=== PATIENT | female | born 1930 | race Caucasian/White ===

== ENCOUNTER 2017-09-30 20:17 | Inpatient (IN) | payer MEDICARE, OTHER ==
[2017-09-30 21:29] LABS: ALB/GLOB RATIO 1.2 (1.0-2.1); ALBUMIN 4.2 g/dL (3.5-5.0); CALCIUM 9.9 mg/dL (8.4-10.2)
[2017-09-30 21:30] LABS: INR 1.2 (0.9-1.2); PARTIAL THROMBOPLASTIN TIME 29.3 Seconds (25.6-37.1); PROTHROMBIN TIME 13.1 Seconds (9.8-13.1)
[2017-09-30 21:34] LABS: BASO % 0.2 % (0.0-2.0); EOS % 0.1 % (0.0-4.0); HEMOGLOBIN 10.6 g/dL (12.0-16.0); LYMPH # 0.6 K/uL (1.0-4.3); LYMPH % 9.8 % (20.0-40.0); MEAN CELL VOLUME 99.7 fl (81.0-99.0); MEAN CORPUSCULAR HEMOGLOBIN 33.2 pg (27.0-31.0); MEAN CORPUSCULAR HGB CONC 33.3 g/dL (33.0-37.0); MEAN PLATELET VOLUME 10.1 fl (7.2-11.7); MONO # 0.5 K/uL (0.0-0.8); MONO % 8.1 % (0.0-10.0); NEUT # 4.9 K/uL (1.8-7.0); NEUT % 81.8 % (50.0-75.0); NRBC % 0.1 % (0.0-0.0); RED CELL DISTRIBUTION WIDTH 15.7 % (11.5-14.5)
--- NOTE | 2017-09-30 22:01 | ED PDOC ---
HPI:Nausea, Vomiting, Diarrhea Time Seen by Provider: 09/30/17 20:31 Chief Complaint (Nursing): GI Problem Chief Complaint (Provider): Vomiting History Per: Other (Assisted) History/Exam Limitations: clinical condition (dementia) Associated Symptoms: Nausea, Vomiting Additional History Per: Assisted Additional Complaint(s): 87yo female, with history of dementia, sent to [facility] from [facility] for evaluation as patient was reported to have several episodes of vomiting. On arrival to ER, patient has no recollection of vomiting and states she feels well. Patient has ESRD and is on dialysis (Wednesday, , Wednesday) and did receive the dialysis today. She is unable to offer a full history since she has dementia. PMD: Dr. Irina Chappell Past Medical History Reviewed: Historical Data, Nursing Documentation, Vital Signs Vital Signs: Last Vital Signs Temp 98.4 F 09/30/17 20:20 Pulse 102 H 09/30/17 20:20 Resp 16 09/30/17 20:20 BP 138/60 09/30/17 20:20 Pulse Ox 98 09/30/17 20:20 - Medical History PMH: Dementia, Diabetes, HTN, Chronic Kidney Disease - Surgical History Surgical History: No Surg Hx - Family History Family History: States: No Known Family Hx - Living Arrangements Living Arrangements: Assisted/Assist Lv - Home Medications Home Medications: Ambulatory Orders Medication Instructions Recorded Acetaminophen [Tylenol 325mg tab] 650 mg PO Q4 PRN 10/01/17 Amino Acids/Protein Hydrolys 30 ml PO TID 10/01/17 [Prosource No Carb Liquid Pkt] Calcium Carbonate/Vitamin D3 1 tab PO BID 10/01/17 [Oyster Shell Calcium-Vit D Tab] Clonidine HCl [Catapres] 0.2 mg PO Q8 10/01/17 Clopidogrel [Plavix] 75 mg PO DAILY 10/01/17 Cyproheptadine HCl [Cyproheptadine 1 tab PO BID 10/01/17 HCl] Famotidine [Pepcid] 20 mg PO Q12 10/01/17 Isosorbide Mononitrate ER [Imdur 60 mg PO DAILY 10/01/17 ER] Lactulose [Generlac] 30 ml PO DAILY PRN 10/01/17 Losartan [Cozaar] 100 mg PO DAILY 05/11/18 Pravastatin Sodium [Pravachol] 40 mg PO HS 10/01/17 Sevelamer Carbonate [Renvela] 2 tab PO TIDPC 10/01/17 Vit A/Vitamin D3/E/Aloe V/Zinc 1 appl TD Q8 10/01/17 [Periguard Ointment] Vitamin B Complex/Vit C/Folic 1 tab PO DAILY 10/01/17 [Nephro-Varsha] Vits A and D/White Pet/Lanolin 1 appl TD Q8 10/01/17 [Vitamin A and D Ointment] - Allergies Allergies/Adverse Reactions: Allergies Allergy/AdvReac Type Severity Reaction Status Date / Time moxifloxacin [From Avelox] Allergy RASH Verified 09/30/17 20:20 Penicillins Allergy RASH Verified 09/30/17 20:20 Review of Systems ROS Statement: Except As Marked, All Systems Reviewed And Found Negative ( limited due to patient's clinical condition) Gastrointestinal: Positive for: Nausea, Vomiting Physical Exam - Reviewed Nursing Documentation Reviewed: Yes Vital Signs Reviewed: Yes - Physical Exam Appears: Positive for: Non-toxic, No Acute Distress Skin: Positive for: Warm, Dry Eye Exam: Positive for: Normal appearance ENT: Positive for: Other (dry mucus membranes) Cardiovascular/Chest: Positive for: Regular Rate, Rhythm, Murmur (3/6 holosystolic murmur) Respiratory: Positive for: Normal Breath Sounds Gastrointestinal/Abdominal: Positive for: Normal Exam, Soft. Negative for: Tenderness Neurologic/Psych: Positive for: Alert - Laboratory Results Result Diagrams: 10/01/17 06:25 10/01/17 06:25 - ECG O2 Sat by Pulse Oximetry: 98 (RA) Pulse Ox Interpretation: Normal Medical Decision Making Medical Decision Making: Impression: 87yo female with vomiting in setting of known hemodialysis, renal failure Plan: -- Labs -- Zofran 4mg IV Time: 2142 Labs reviewed and shows significant LFT derangement. US Galbladder ordered. 2310 US FINDINGS: Liver: Increased echogenicity. Measured at 16.5 cm. Gallbladder: Not visualized. Common bile duct: Measured at 7 mm. Pancreas: Limited evaluation. Right kidney: Atrophy. Increased echogenicity. Measured at approximately 6.8 x 2.5 x 2.9 cm. IMPRESSION: Technically limited study. Atrophic right kidney. Correlate for medical renal disease. Gallbladder not visualized. Correlate for cholecystectomy. Limited evaluation of the pancreas. Increased echogenicity of the liver, may be on the basis of fatty infiltration. 0026 Upon re-evaluation, patient notes that she is feeling better. Patient has tolerated PO challenge. Labs reviewed: no clinically significant abnormalities. Repeat vitals show temperature of 102 DC. No obvious source noted. Case referred to hospitalist Dr. Rainey, covering Dr. Chappell. * Acetaminophen 650mg DC * BCx * Re-eval Scribe Attestation: Documented by Lindsey Hayes and Rachel Almeida, acting as a scribe for Noah Rao MD Provider Scribe Attestation: All medical record entries made by the Scribe were at my direction and personally dictated by me. I have reviewed the chart and agree that the record accurately reflects my personal performance of the history, physical exam, medical decision making, and the department course for this patient. I have also personally directed, reviewed, and agree with the discharge instructions and disposition. Disposition - Clinical Impression Clinical Impression: Hemodialysis patient, Fever - Disposition Disposition Time: 00:26 Condition: FAIR - Pt Status Changed To: Hospital Disposition Of: Observation
[2017-09-30 22:05] LABS: BANDS 1 % (0-2); LYMPHOCYTE 11 % (20-50); METAMYELOCYTE 1 % (0-0); MONOCYTE 6 % (0-10); NEUTROPHIL 79 % (42-75); REACTIVE LYMPHOCYTES 2 % (0-0); TOTAL CELLS COUNTED 100
[2017-09-30 22:07] LABS: ANISOCYTOSIS SLIGHT; HYPOCHROMIC MODERATE; POIKILOCYTOSIS SLIGHT; ROULEAUX FORMATION SLIGHT
[2017-09-30 22:12] LABS: TARGET CELLS SLIGHT; TEARDROP CELLS SLIGHT
[2017-09-30 22:13] LABS: OVALOCYTES SLIGHT
[2017-09-30 22:14] LABS: PLATELET ESTIMATE DECREASED (NORMAL)
[2017-09-30 22:18] LABS: PLATELET COUNT 105 K/uL (130-400)
--- NOTE | 2017-09-30 23:11 | US ---
EXAM: US Abdomen Limited, Right Upper Quadrant CLINICAL HISTORY: 87 years old, female; Signs and symptoms; Vomiting TECHNIQUE: Real-time ultrasound of the right upper quadrant with image documentation. COMPARISON: No relevant prior studies available. FINDINGS: Liver: Increased echogenicity. Measured at 16.5 cm. Gallbladder: Not visualized. Common bile duct: Measured at 7 mm. Pancreas: Limited evaluation. Right kidney: Atrophy. Increased echogenicity. Measured at approximately 6.8 x 2.5 x 2.9 cm. IMPRESSION: Technically limited study. Atrophic right kidney. Correlate for medical renal disease. Gallbladder not visualized. Correlate for cholecystectomy. Limited evaluation of the pancreas. Increased echogenicity of the liver, may be on the basis of fatty infiltration.
[2017-10-01] MEDS ORDERED: Gentamicin 80mg/50ml NS 80 MG/50 ML BAG IVPB STA (00:44)
--- NOTE | 2017-10-01 01:27 | CP.PCM.HP ---
History of Present Illness - History of Present Illness History of Present Illness: CC: sent from [place] HPI: 87 F PMH ESRD TTS, Dementia, HTN, presents to the ED from [facility] for reported nausea and several episodes of emesis for one day, unremitting, unknown if ameliorated by anything. Pt states at this time she does not feel well, however is unable to describe what is bothering her. Pt is likely tired, and is mentating at baseline according to ED physician, to whom she is familiar. Abd US unremarkable, no WBC, however did spike fever in ED 102.4 rectally. Given Vanc and Genta. Pt to be catheterized for UA, UCx, blood cx sent. HD stable, otherwise NAD. ROS: difficult to obtain given dementia. PMSH: ESRD, dementia, HTN FH/SH: unable to be obtained, dementia, unable to reach family member Meds as below ALLERGIES: PCN, moxifloxacin CODE STATUS: DNR Present on Admission - Present on Admission Any Indicators Present on Admission: Yes Decubitus Ulcer Present: Yes Decubitus Ulcer Location: sacral, very mild Decubitus Ulcer Stage: I Past Patient History - Past Medical History & Family History Past Medical History?: Yes - Past Social History Smoking Status: Never Smoked - CARDIAC Hx Hypertension: Yes - PULMONARY Hx Respiratory Disorders: No - NEUROLOGICAL Hx Dementia: Yes - HEENT Hx HEENT Problems: No - RENAL Hx Chronic Kidney Disease: Yes - ENDOCRINE/METABOLIC Hx Endocrine Disorders: Yes Hx Diabetes Mellitus Type 2: Yes - HEMATOLOGICAL/ONCOLOGICAL Hx Blood Disorders: No - INTEGUMENTARY Hx Dermatological Problems: Yes Other/Comment: Hx Healed decubitus ulcer (buttocks) - MUSCULOSKELETAL/RHEUMATOLOGICAL Hx Musculoskeletal Disorders: Yes Hx Falls: Yes - GASTROINTESTINAL Hx Gastrointestinal Disorders: Yes Hx Gastroesophageal Reflux: Yes Other/Comment: Hx Prolapsed rectum - GENITOURINARY/GYNECOLOGICAL Hx Genitourinary Disorders: Yes Other/Comment: Hx Uterine prolapse - PSYCHIATRIC Hx Substance Use: No - SURGICAL HISTORY Hx Surgeries: Yes Other/Comment: Hx Av fistula creation - ANESTHESIA Hx Anesthesia: Yes Hx Anesthesia Reactions: No Hx Malignant Hyperthermia: No Meds Allergies/Adverse Reactions: Allergies Allergy/AdvReac Type Severity Reaction Status Date / Time moxifloxacin [From Avelox] Allergy RASH Verified 09/30/17 20:20 Penicillins Allergy RASH Verified 09/30/17 20:20 Physical Exam - Constitutional Appears: Non-toxic, No Acute Distress - Head Exam Head Exam: ATRAUMATIC, NORMOCEPHALIC - Eye Exam Eye Exam: EOMI, Normal appearance, PERRL - ENT Exam ENT Exam: Mucous Membranes Moist, Normal Oropharynx - Respiratory Exam Respiratory Exam: Clear to Auscultation Bilateral, NORMAL BREATHING PATTERN - Cardiovascular Exam Cardiovascular Exam: RRR, +S1, +S2, Systolic Murmur - GI/Abdominal Exam GI & Abdominal Exam: Normal Bowel Sounds, Soft - Extremities Exam Extremities exam: Positive for: normal capillary refill, pedal pulses present - Back Exam Back exam: absent: CVA tenderness (L), CVA tenderness (R) - Neurological Exam Neurological exam: Alert, Reflexes Normal - Psychiatric Exam Psychiatric exam: Normal Affect, Normal Mood - Skin Skin Exam: Dry, Warm Results - Vital Signs Recent Vital Signs: Last Vital Signs Temp 102.4 F H 10/01/17 00:24 Pulse 68 10/01/17 00:24 Resp 18 10/01/17 00:24 BP 136/66 10/01/17 00:24 Pulse Ox 98 10/01/17 01:26 - Labs Result Diagrams: 09/30/17 20:30 09/30/17 20:30 Labs: Laboratory Results - last 24 hr 09/30/17 09/30/17 09/30/17 20:30 20:30 20:30 WBC 6.0 RBC 3.20 L Hgb 10.6 L Hct 31.9 L MCV 99.7 H MCH 33.2 H MCHC 33.3 RDW 15.7 H Plt Count 105 L MPV 10.1 Neut % (Auto) 81.8 H Lymph % (Auto) 9.8 L Garvin % (Auto) 8.1 Eos % (Auto) 0.1 Baso % (Auto) 0.2 Neut # (Auto) 4.9 Lymph # (Auto) 0.6 L Garvin # (Auto) 0.5 Eos # (Auto) 0.0 Baso # (Auto) 0.0 Neutrophils % (Manual) 79 H Band Neutrophils % 1 Lymphocytes % (Manual) 11 L Reactive Lymphs % 2 H Monocytes % (Manual) 6 Metamyelocytes % 1 H Platelet Estimate Decreased L Hypochromasia (manual) Moderate Poikilocytosis (manual Slight Anisocytosis (manual) Slight Target Cells Slight Tear Drop Cells Slight Ovalocytes Slight Rouleaux Slight PT 13.1 INR 1.2 APTT 29.3 Sodium 142 Potassium 3.6 Chloride 93 L Carbon Dioxide 33 H Anion Gap 20 BUN 33 H Creatinine 3.3 H Est GFR ( Amer) 16 Est GFR (Non-Af Amer) 13 POC Glucose (mg/dL) Random Glucose 247 H Calcium 9.9 Total Bilirubin 2.6 H AST 479 H ALT 347 H D Alkaline Phosphatase 396 H Total Protein 7.7 Albumin 4.2 Globulin 3.5 Albumin/Globulin Ratio 1.2 Lipase 09/30/17 09/30/17 21:24 22:22 WBC RBC Hgb Hct MCV MCH MCHC RDW Plt Count MPV Neut % (Auto) Lymph % (Auto) Garvin % (Auto) Eos % (Auto) Baso % (Auto) Neut # (Auto) Lymph # (Auto) Garvin # (Auto) Eos # (Auto) Baso # (Auto) Neutrophils % (Manual) Band Neutrophils % Lymphocytes % (Manual) Reactive Lymphs % Monocytes % (Manual) Metamyelocytes % Platelet Estimate Hypochromasia (manual) Poikilocytosis (manual Anisocytosis (manual) Target Cells Tear Drop Cells Ovalocytes Rouleaux PT INR APTT Sodium Potassium Chloride Carbon Dioxide Anion Gap BUN Creatinine Est GFR ( Amer) Est GFR (Non-Af Amer) POC Glucose (mg/dL) 224 H Random Glucose Calcium Total Bilirubin AST ALT Alkaline Phosphatase Total Protein Albumin Globulin Albumin/Globulin Ratio Lipase 184 Assessment & Plan - Assessment and Plan (Free Text) Plan: 87 F PMH ESRD TTS, Dementia, HTN, presents to the ED from [facility] for reported nausea and several episodes of emesis for one day, unremitting, unknown if ameliorated by anything. Pt states at this time she does not feel well, however is unable to describe what is bothering her. Pt is likely tired, and is mentating at baseline according to ED physician, to whom she is familiar. Abd US unremarkable, no WBC, however did spike fever in ED 102.4 rectally. Given Vanc and Genta. Pt to be catheterized for UA, UCx, blood cx sent. HD stable, otherwise NAD. Fever HD stable, no obvious source of infection, poss gastritis, no diarrhea UA/UCx pending Blood cx pending Vanc and Gentamicin initiated in ED Murmur, No prior documentation ECHO pending ESRD HD TTS resume Sevelamer Carbonate 2 tab PO TIDPC resume Cyproheptadine 1 mg PO BID resume Vitamin B Complex/Vit C/Folic [Nephro-Varsha] 1 tab PO DAILY Nephrology Consult: Dr. Kong Dementia resume home meds CAD, HTN cont Clopidogrel 75 mg PO DAILY cont Isosorbide Mononitrate ER 60 mg PO DAILY cont Losartan 100 mg PO DAILY cont cloNIDine 0.2 mg PO Q8 GERD? Famotidine 20 mg PO Q12 Stage 1 Decub, sacral area Vit A/Vitamin D3/E/Aloe V/Zinc 1 appl TD Q8 Vitamin A/D 1 applic TP Q8 HLD cont Pravastatin Sodium [Pravachol] 40 mg PO HS VTE ppx, Lovenox CODE STATUS: DNR
[2017-10-01] MEDS ORDERED: Lactulose 10 gm/15 ml (Rectal Use) PR PRN (01:49)
[2017-10-01 06:41] LABS: BASO % 0.3 % (0.0-2.0); EOS % 0.2 % (0.0-4.0); HEMOGLOBIN 9.7 g/dL (12.0-16.0); LYMPH # 0.7 K/uL (1.0-4.3); LYMPH % 10.5 % (20.0-40.0); MEAN CORPUSCULAR HEMOGLOBIN 33.1 pg (27.0-31.0); MEAN CORPUSCULAR HGB CONC 32.8 g/dL (33.0-37.0); MEAN PLATELET VOLUME 10.2 fl (7.2-11.7); MONO # 0.5 K/uL (0.0-0.8); MONO % 7.9 % (0.0-10.0); NEUT # 5.4 K/uL (1.8-7.0); NEUT % 81.1 % (50.0-75.0); NRBC % 0.1 % (0.0-0.0); RBC 2.93 Mil/uL (3.80-5.20); RED CELL DISTRIBUTION WIDTH 16.2 % (11.5-14.5); WHITE BLOOD COUNT 6.7 K/uL (4.8-10.8)
[2017-10-01 06:48] LABS: CALCIUM 9.6 mg/dL (8.4-10.2)
[2017-10-01 07:23] LABS: ALB/GLOB RATIO 1.1 (1.0-2.1); ALBUMIN 3.6 g/dL (3.5-5.0); BILIRUBIN,DIRECT 2.9 mg/ml (0.0-0.4)
--- NOTE | 2017-10-01 08:36 | RAD ---
HISTORY: abd pain COMPARISON: Chest radiographs 07/29/2014. Abdomen pelvis CT examination 10/10/2013. FINDINGS: BOWEL: A nonobstructive bowel gas pattern is appreciated. Surgical clips in the upper outer quadrant with prominent vascular calcifications likely of the splenic artery at the left upper quadrant. The aorta and iliac arterial systems also exhibit partially calcified atherosclerosis. No free intraperitoneal gas is demonstrated. BONES: Multilevel degenerative lumbar spondylosis noted as well as degenerative changes at the bilateral sacroiliac and hip joints. OTHER FINDINGS: No infiltrate pleural effusion or pneumothorax identified. Cardiomegaly is appreciated once again with pacemaker/AICD in position once again. IMPRESSION: Nonobstructive bowel gas pattern appreciated. Postoperative changes seen the right upper quadrant abdomen and vascular calcifications seen the abdomen as well.
[2017-10-01] MEDS: Enoxaparin 30 mg Syringe SC SCH (08:41)
[2017-10-01] MEDS: Multivitamin Vitamin B Complex (Nephro-Vite) Tab PO SCH (08:41)
[2017-10-01] MEDS: Vitamin A/D oint 60G TP SCH ×2 (08:44→16:34)
[2017-10-01] MEDS ORDERED: Gentamicin 80mg/50ml NS 80 MG/50 ML BAG IVPB SCH (09:00)
[2017-10-01] MEDS ORDERED: Sodium Chloride 0.9% 500 ML IV SCH (10:00)
[2017-10-01] MEDS ORDERED: Sodium Chloride 0.9% 1,000 ML IV SCH (10:15)
[2017-10-01] MEDS: Proshield Plus GEL TOP SCH ×2 (11:08→16:25)
[2017-10-01] MEDS ORDERED: Potassium Chloride 20 mEq/15 ml LIQ UD PO ONE (15:16)
--- NOTE | 2017-10-01 17:50 | CARD ---
APPROVED REPORT EKG Measurement Heart [id number] <Conclusion> Atrial fibrillation with rapid ventricular response Right bundle branch block T wave abnormality, consider inferior ischemia Abnormal ECG
--- NOTE | 2017-10-01 18:26 | CP.PCM.CON ---
Past Patient History - Past Medical History & Family History Past Medical History?: Yes - Past Social History Smoking Status: unknown - CARDIAC Hx Cardiac Disorders: Yes Hx Hypertension: Yes - PULMONARY Hx Respiratory Disorders: No - NEUROLOGICAL Hx Neurological Disorder: Yes Hx Dementia: Yes - HEENT Hx HEENT Problems: No - RENAL Hx Chronic Kidney Disease: Yes Hx Dialysis: Yes Type of Dialysis Access: hemodialysis Date of Last Dialysis Treatment: 09/30/17 Hx Renal Failure: Yes - ENDOCRINE/METABOLIC Hx Endocrine Disorders: Yes Hx Diabetes Mellitus Type 2: Yes - HEMATOLOGICAL/ONCOLOGICAL Hx Blood Disorders: No - INTEGUMENTARY Hx Dermatological Problems: Yes - MUSCULOSKELETAL/RHEUMATOLOGICAL Hx Falls: Yes - GASTROINTESTINAL Hx Gastrointestinal Disorders: Yes Hx Gastroesophageal Reflux: Yes Other/Comment: Hx Prolapsed rectum - GENITOURINARY/GYNECOLOGICAL Hx Genitourinary Disorders: Yes - PSYCHIATRIC Hx Psychophysiologic Disorder: Yes Hx Substance Use: No Other/Comment: dementia - SURGICAL HISTORY Hx Surgeries: Yes Other/Comment: Hx Av fistula creation - ANESTHESIA Hx Anesthesia: Yes Hx Anesthesia Reactions: No Hx Malignant Hyperthermia: No Meds Allergies/Adverse Reactions: Allergies Allergy/AdvReac Type Severity Reaction Status Date / Time moxifloxacin [From Avelox] Allergy RASH Verified 09/30/17 20:20 Penicillins Allergy RASH Verified 09/30/17 20:20 - Medications Medications: Current Medications Acetaminophen (Tylenol 325mg Tab) 650 mg PO Q4 PRN PRN Reason: mild pain or temp Last Admin: 10/01/17 02:07 Dose: 650 mg Clonidine HCl (Catapres) 0.2 mg PO Q8 [facility] Last Admin: 10/01/17 16:33 Dose: 0.2 mg Clopidogrel Bisulfate (Plavix) 75 mg PO DAILY [facility] Last Admin: 10/01/17 08:42 Dose: 75 mg Cyproheptadine HCl (Periactin) 4 mg PO BID [facility] Last Admin: 10/01/17 16:34 Dose: 4 mg Dimethicone (Proshield Plus Skin Protectant) 1 applic TOP Q8 [facility] Last Admin: 10/01/17 16:25 Dose: 1 applic Enoxaparin Sodium (Lovenox) 30 mg SC DAILY [facility] PRN Reason: Protocol Last Admin: 10/01/17 08:41 Dose: 30 mg Famotidine (Pepcid) 20 mg PO Q12 [facility] Last Admin: 10/01/17 08:41 Dose: 20 mg Gentamicin Sulfate/Sodium Chloride (Gentamicin 80mg/50ml Ns) 80 mg in 50 mls @ 49.02 mls/hr IVPB DAILY [facility] PRN Reason: Protocol Last Admin: 10/01/17 11:55 Dose: 49.02 mls/hr Vancomycin HCl 1 gm/ Sodium (Chloride) 250 mls @ 166.667 mls/hr IVPB TTS [facility] PRN Reason: Protocol Dextrose/Sodium Chloride (Dextrose 5%-0.45% Ns 500 Ml) 500 mls @ 50 mls/hr IV .Q10H [facility] Stop: 10/02/17 10:54 Last Admin: 10/01/17 11:09 Dose: 50 mls/hr Piperacillin Sod/Tazobactam (Sod 2.25 gm/ Sodium Chloride) 100 mls @ 100 mls/ hr IVPB Q12 [facility] PRN Reason: Protocol Isosorbide Mononitrate (Imdur) 60 mg PO DAILY [facility] Last Admin: 10/01/17 08:40 Dose: 60 mg Lactulose (Generlac) 20 gm IN DAILY PRN PRN Reason: Constipation Losartan Potassium (Cozaar) 100 mg PO DAILY [facility] Last Admin: 10/01/17 08:40 Dose: 100 mg Pravastatin Sodium (Pravachol) 40 mg PO HS [facility] Sevelamer HCl (Renagel) 1,600 mg PO TIDPC [facility] Last Admin: 10/01/17 16:33 Dose: 1,600 mg Vitamin A (Vitamin A&D) 1 applic TP Q8 [facility] Last Admin: 10/01/17 16:34 Dose: 1 applic Vitamin B Complex/Vit C/Folic Acid (Nephro-Varsha) 1 tab PO DAILY [facility] Last Admin: 10/01/17 08:41 Dose: 1 tab Results - Vital Signs Recent Vital Signs: Last Vital Signs Temp 97.7 F 10/01/17 16:27 Pulse 66 10/01/17 16:33 Resp 18 10/01/17 16:27 BP 169/66 H 10/01/17 16:33 Pulse Ox 99 10/01/17 16:27 - Labs Result Diagrams: 10/01/17 06:25 10/01/17 06:25 Labs: Laboratory Results - last 24 hr 09/30/17 09/30/17 09/30/17 20:30 20:30 20:30 WBC 6.0 RBC 3.20 L Hgb 10.6 L Hct 31.9 L MCV 99.7 H MCH 33.2 H MCHC 33.3 RDW 15.7 H Plt Count 105 L MPV 10.1 Neut % (Auto) 81.8 H Lymph % (Auto) 9.8 L Glenn % (Auto) 8.1 Eos % (Auto) 0.1 Baso % (Auto) 0.2 Neut # (Auto) 4.9 Lymph # (Auto) 0.6 L Glenn # (Auto) 0.5 Eos # (Auto) 0.0 Baso # (Auto) 0.0 Neutrophils % (Manual) 79 H Band Neutrophils % 1 Lymphocytes % (Manual) 11 L Reactive Lymphs % 2 H Monocytes % (Manual) 6 Metamyelocytes % 1 H Platelet Estimate Decreased L Hypochromasia (manual) Moderate Poikilocytosis (manual Slight Anisocytosis (manual) Slight Target Cells Slight Tear Drop Cells Slight Ovalocytes Slight Rouleaux Slight PT 13.1 INR 1.2 APTT 29.3 Sodium 142 Potassium 3.6 Chloride 93 L Carbon Dioxide 33 H Anion Gap 20 BUN 33 H Creatinine 3.3 H Est GFR ( Amer) 16 Est GFR (Non-Af Amer) 13 POC Glucose (mg/dL) Random Glucose 247 H Lactic Acid Calcium 9.9 Total Bilirubin 2.6 H Direct Bilirubin AST 479 H ALT 347 H D Alkaline Phosphatase 396 H Total Protein 7.7 Albumin 4.2 Globulin 3.5 Albumin/Globulin Ratio 1.2 Lipase 09/30/17 09/30/17 10/01/17 21:24 22:22 06:25 WBC 6.7 RBC 2.93 L Hgb 9.7 L Hct 29.6 L MCV 101.0 H MCH 33.1 H MCHC 32.8 L RDW 16.2 H Plt Count 97 L MPV 10.2 Neut % (Auto) 81.1 H Lymph % (Auto) 10.5 L Glenn % (Auto) 7.9 Eos % (Auto) 0.2 Baso % (Auto) 0.3 Neut # (Auto) 5.4 Lymph # (Auto) 0.7 L Glenn # (Auto) 0.5 Eos # (Auto) 0.0 Baso # (Auto) 0.0 Neutrophils % (Manual) Band Neutrophils % Lymphocytes % (Manual) Reactive Lymphs % Monocytes % (Manual) Metamyelocytes % Platelet Estimate Hypochromasia (manual) Poikilocytosis (manual Anisocytosis (manual) Target Cells Tear Drop Cells Ovalocytes Rouleaux PT INR APTT Sodium Potassium Chloride Carbon Dioxide Anion Gap BUN Creatinine Est GFR ( Amer) Est GFR (Non-Af Amer) POC Glucose (mg/dL) 224 H Random Glucose Lactic Acid Calcium Total Bilirubin Direct Bilirubin AST ALT Alkaline Phosphatase Total Protein Albumin Globulin Albumin/Globulin Ratio Lipase 184 10/01/17 10/01/17 10/01/17 06:25 06:48 08:21 WBC RBC Hgb Hct MCV MCH MCHC RDW Plt Count MPV Neut % (Auto) Lymph % (Auto) Glenn % (Auto) Eos % (Auto) Baso % (Auto) Neut # (Auto) Lymph # (Auto) Glenn # (Auto) Eos # (Auto) Baso # (Auto) Neutrophils % (Manual) Band Neutrophils % Lymphocytes % (Manual) Reactive Lymphs % Monocytes % (Manual) Metamyelocytes % Platelet Estimate Hypochromasia (manual) Poikilocytosis (manual Anisocytosis (manual) Target Cells Tear Drop Cells Ovalocytes Rouleaux PT INR APTT Sodium 143 Potassium 3.0 L Chloride 97 L Carbon Dioxide 31 H Anion Gap 18 BUN 35 H Creatinine 4.1 H Est GFR ( Amer) 13 Est GFR (Non-Af Amer) 10 POC Glucose (mg/dL) 148 H 152 H Random Glucose 146 H Lactic Acid Calcium 9.6 Total Bilirubin 3.2 H Direct Bilirubin 2.9 H AST 289 H D ALT 305 H Alkaline Phosphatase 327 H Total Protein 6.8 Albumin 3.6 Globulin 3.2 Albumin/Globulin Ratio 1.1 Lipase 10/01/17 10/01/17 10/01/17 10:28 11:13 15:43 WBC RBC Hgb Hct MCV MCH MCHC RDW Plt Count MPV Neut % (Auto) Lymph % (Auto) Glenn % (Auto) Eos % (Auto) Baso % (Auto) Neut # (Auto) Lymph # (Auto) Glenn # (Auto) Eos # (Auto) Baso # (Auto) Neutrophils % (Manual) Band Neutrophils % Lymphocytes % (Manual) Reactive Lymphs % Monocytes % (Manual) Metamyelocytes % Platelet Estimate Hypochromasia (manual) Poikilocytosis (manual Anisocytosis (manual) Target Cells Tear Drop Cells Ovalocytes Rouleaux PT INR APTT Sodium Potassium Chloride Carbon Dioxide Anion Gap BUN Creatinine Est GFR ( Amer) Est GFR (Non-Af Amer) POC Glucose (mg/dL) 187 H 172 H Random Glucose Lactic Acid 1.9 Calcium Total Bilirubin Direct Bilirubin AST ALT Alkaline Phosphatase Total Protein Albumin Globulin Albumin/Globulin Ratio Lipase 10/01/17 16:47 WBC RBC Hgb Hct MCV MCH MCHC RDW Plt Count MPV Neut % (Auto) Lymph % (Auto) Glenn % (Auto) Eos % (Auto) Baso % (Auto) Neut # (Auto) Lymph # (Auto) Glenn # (Auto) Eos # (Auto) Baso # (Auto) Neutrophils % (Manual) Band Neutrophils % Lymphocytes % (Manual) Reactive Lymphs % Monocytes % (Manual) Metamyelocytes % Platelet Estimate Hypochromasia (manual) Poikilocytosis (manual Anisocytosis (manual) Target Cells Tear Drop Cells Ovalocytes Rouleaux PT INR APTT Sodium Potassium Chloride Carbon Dioxide Anion Gap BUN Creatinine Est GFR ( Amer) Est GFR (Non-Af Amer) POC Glucose (mg/dL) 181 H Random Glucose Lactic Acid Calcium Total Bilirubin Direct Bilirubin AST ALT Alkaline Phosphatase Total Protein Albumin Globulin Albumin/Globulin Ratio Lipase
--- NOTE | 2017-10-01 19:54 | CP.PCM.PN ---
Subjective - Date & Time of Evaluation Date of Evaluation: 10/01/17 Time of Evaluation: 19:50 - Subjective Subjective: I D NOTE DISCUSSED c PATIENT IS ALLERGIC TO PCN AWAIT CULTURES CONTINUE ZOSYN,GIVE GENTAMICIN POST HD Objective - Vital Signs/Intake and Output Vital Signs (last 24 hours): Temp Pulse Resp BP Pulse Ox 97.7 F 66 18 169/66 H 99 10/01/17 16:27 10/01/17 16:33 10/01/17 16:27 10/01/17 16:33 10/01/17 16:27 - Medications Medications: Current Medications Acetaminophen (Tylenol 325mg Tab) 650 mg PO Q4 PRN PRN Reason: mild pain or temp Last Admin: 10/01/17 02:07 Dose: 650 mg Clonidine HCl (Catapres) 0.2 mg PO Q8 [facility] Last Admin: 10/01/17 16:33 Dose: 0.2 mg Clopidogrel Bisulfate (Plavix) 75 mg PO DAILY [facility] Last Admin: 10/01/17 08:42 Dose: 75 mg Cyproheptadine HCl (Periactin) 4 mg PO BID [facility] Last Admin: 10/01/17 16:34 Dose: 4 mg Dimethicone (Proshield Plus Skin Protectant) 1 applic TOP Q8 [facility] Last Admin: 10/01/17 16:25 Dose: 1 applic Enoxaparin Sodium (Lovenox) 30 mg SC DAILY [facility] PRN Reason: Protocol Last Admin: 10/01/17 08:41 Dose: 30 mg Famotidine (Pepcid) 20 mg PO Q12 [facility] Last Admin: 10/01/17 08:41 Dose: 20 mg Vancomycin HCl 1 gm/ Sodium (Chloride) 250 mls @ 166.667 mls/hr IVPB TTS [facility] PRN Reason: Protocol Dextrose/Sodium Chloride (Dextrose 5%-0.45% Ns 500 Ml) 500 mls @ 50 mls/hr IV .Q10H [facility] Stop: 10/02/17 10:54 Last Admin: 10/01/17 11:09 Dose: 50 mls/hr Piperacillin Sod/Tazobactam (Sod 2.25 gm/ Sodium Chloride) 100 mls @ 100 mls/ hr IVPB Q12 [facility] PRN Reason: Protocol Gentamicin Sulfate/Sodium Chloride (Gentamicin 80mg/50ml Ns) 80 mg in 50 mls @ 50 mls/hr IVPB TTS [facility] PRN Reason: Protocol Isosorbide Mononitrate (Imdur) 60 mg PO DAILY [facility] Last Admin: 10/01/17 08:40 Dose: 60 mg Lactulose (Generlac) 20 gm [place] DAILY PRN PRN Reason: Constipation Losartan Potassium (Cozaar) 100 mg PO DAILY [facility] Last Admin: 10/01/17 08:40 Dose: 100 mg Pravastatin Sodium (Pravachol) 40 mg PO HS [facility] Sevelamer HCl (Renagel) 1,600 mg PO TIDPC [facility] Last Admin: 10/01/17 16:33 Dose: 1,600 mg Vitamin A (Vitamin A&D) 1 applic TP Q8 [facility] Last Admin: 10/01/17 16:34 Dose: 1 applic Vitamin B Complex/Vit C/Folic Acid (Nephro-Varsha) 1 tab PO DAILY [facility] Last Admin: 10/01/17 08:41 Dose: 1 tab - Labs Labs: 10/01/17 06:25 10/01/17 06:25 PT 13.1 Seconds (9.8-13.1) 09/30/17 20:30 INR 1.2 (0.9-1.2) 09/30/17 20:30 APTT 29.3 Seconds (25.6-37.1) 09/30/17 20:30
[2017-10-01] MEDS: Pravastatin Sodium 40 MG TAB PO SCH (22:18)
[2017-10-02] MEDS: Vitamin A/D oint 60G TP SCH ×3 (01:27→16:57)
[2017-10-02] MEDS: Proshield Plus GEL TOP SCH ×3 (01:28→16:56)
[2017-10-02 08:16] LABS: HEMOGLOBIN 9.8 g/dL (12.0-16.0); MEAN CORPUSCULAR HEMOGLOBIN 32.5 pg (27.0-31.0); MEAN CORPUSCULAR HGB CONC 32.5 g/dL (33.0-37.0); RED CELL DISTRIBUTION WIDTH 16.6 % (11.5-14.5); WHITE BLOOD COUNT 5.2 K/uL (4.8-10.8)
[2017-10-02 09:16] LABS: ALB/GLOB RATIO 1.1 (1.0-2.1); ALBUMIN 3.4 g/dL (3.5-5.0); CALCIUM 9.2 mg/dL (8.4-10.2)
[2017-10-02] MEDS: Multivitamin Vitamin B Complex (Nephro-Vite) Tab PO SCH (09:20)
[2017-10-02] MEDS: Enoxaparin 30 mg Syringe SC SCH (09:20)
--- NOTE | 2017-10-02 13:07 | CP.PCM.PN ---
Subjective - Date & Time of Evaluation Date of Evaluation: 10/03/15 Time of Evaluation: 13:05 - Subjective Subjective: I D NOTE CORRECTING 10/01/17 NOTE STAted CONTINUE ZOSYN WHICH WAS INCORRECT PATIENT IS ALLERGIC PRESENT RX IS GENTAMICIN 80MG POST HD FULL CONSULT IS DICTATED Objective - Vital Signs/Intake and Output Vital Signs (last 24 hours): Temp Pulse Resp BP Pulse Ox 97.9 F 64 18 182/65 H 96 10/02/17 08:38 10/02/17 09:14 10/02/17 08:38 10/02/17 09:14 10/02/17 08:38 - Medications Medications: Current Medications Acetaminophen (Tylenol 325mg Tab) 650 mg PO Q4 PRN PRN Reason: mild pain or temp Last Admin: 10/01/17 02:07 Dose: 650 mg Clonidine HCl (Catapres) 0.2 mg PO Q8 [facility] Last Admin: 10/02/17 09:13 Dose: 0.2 mg Clopidogrel Bisulfate (Plavix) 75 mg PO DAILY [facility] Last Admin: 10/02/17 09:22 Dose: 75 mg Cyproheptadine HCl (Periactin) 4 mg PO BID [facility] Last Admin: 10/02/17 09:20 Dose: 4 mg Dimethicone (Proshield Plus Skin Protectant) 1 applic TOP Q8 [facility] Last Admin: 10/02/17 09:21 Dose: 1 applic Enoxaparin Sodium (Lovenox) 30 mg SC DAILY [facility] PRN Reason: Protocol Last Admin: 10/02/17 09:20 Dose: 30 mg Famotidine (Pepcid) 20 mg PO Q12 [facility] Last Admin: 10/02/17 09:21 Dose: 20 mg Vancomycin HCl 1 gm/ Sodium (Chloride) 250 mls @ 166.667 mls/hr IVPB TTS [facility] PRN Reason: Protocol Piperacillin Sod/Tazobactam (Sod 2.25 gm/ Sodium Chloride) 100 mls @ 100 mls/ hr IVPB Q12 [facility] PRN Reason: Protocol Last Admin: 10/02/17 11:23 Dose: 100 mls/hr Gentamicin Sulfate/Sodium Chloride (Gentamicin 80mg/50ml Ns) 80 mg in 50 mls @ 50 mls/hr IVPB TTS [facility] PRN Reason: Protocol Isosorbide Mononitrate (Imdur) 60 mg PO DAILY [facility] Last Admin: 10/02/17 09:22 Dose: 60 mg Lactulose (Generlac) 20 gm [place] DAILY PRN PRN Reason: Constipation Losartan Potassium (Cozaar) 100 mg PO DAILY [facility] Last Admin: 10/02/17 09:14 Dose: 100 mg Pravastatin Sodium (Pravachol) 40 mg PO HS [facility] Last Admin: 10/01/17 22:18 Dose: 40 mg Sevelamer HCl (Renagel) 1,600 mg PO TIDPC [facility] Last Admin: 10/02/17 09:21 Dose: 1,600 mg Vitamin A (Vitamin A&D) 1 applic TP Q8 [facility] Last Admin: 10/02/17 09:21 Dose: 1 applic Vitamin B Complex/Vit C/Folic Acid (Nephro-Varsha) 1 tab PO DAILY [facility] Last Admin: 10/02/17 09:20 Dose: 1 tab - Labs Labs: 10/02/17 04:00 10/02/17 04:00 PT 13.1 Seconds (9.8-13.1) 09/30/17 20:30 INR 1.2 (0.9-1.2) 09/30/17 20:30 APTT 29.3 Seconds (25.6-37.1) 09/30/17 20:30
--- NOTE | 2017-10-02 14:30 | CP.PCM.PN ---
Subjective - Date & Time of Evaluation Date of Evaluation: 10/02/17 Time of Evaluation: 10:30 - Subjective Subjective: Patient seen and examined bedside. Elderly female lying in bed .More awake and alert today. No more nausea or vomiting, no abdominal pain no diarrhea Afebrile last 12 hours WBC 5.2 Blood cx positive for gram negative madai Objective - Vital Signs/Intake and Output Vital Signs (last 24 hours): Temp Pulse Resp BP Pulse Ox 97.9 F 64 18 182/65 H 96 10/02/17 08:38 10/02/17 09:14 10/02/17 08:38 10/02/17 09:14 10/02/17 08:38 - Medications Medications: Current Medications Acetaminophen (Tylenol 325mg Tab) 650 mg PO Q4 PRN PRN Reason: mild pain or temp Last Admin: 10/01/17 02:07 Dose: 650 mg Clonidine HCl (Catapres) 0.2 mg PO Q8 [facility] Last Admin: 10/02/17 09:13 Dose: 0.2 mg Clopidogrel Bisulfate (Plavix) 75 mg PO DAILY [facility] Last Admin: 10/02/17 09:22 Dose: 75 mg Cyproheptadine HCl (Periactin) 4 mg PO BID [facility] Last Admin: 10/02/17 09:20 Dose: 4 mg Dimethicone (Proshield Plus Skin Protectant) 1 applic TOP Q8 [facility] Last Admin: 10/02/17 09:21 Dose: 1 applic Enoxaparin Sodium (Lovenox) 30 mg SC DAILY [facility] PRN Reason: Protocol Last Admin: 10/02/17 09:20 Dose: 30 mg Famotidine (Pepcid) 20 mg PO Q12 [facility] Last Admin: 10/02/17 09:21 Dose: 20 mg Vancomycin HCl 1 gm/ Sodium (Chloride) 250 mls @ 166.667 mls/hr IVPB TTS [facility] PRN Reason: Protocol Piperacillin Sod/Tazobactam (Sod 2.25 gm/ Sodium Chloride) 100 mls @ 100 mls/ hr IVPB Q12 [facility] PRN Reason: Protocol Last Admin: 10/02/17 11:23 Dose: 100 mls/hr Gentamicin Sulfate/Sodium Chloride (Gentamicin 80mg/50ml Ns) 80 mg in 50 mls @ 50 mls/hr IVPB TTS [facility] PRN Reason: Protocol Isosorbide Mononitrate (Imdur) 60 mg PO DAILY [facility] Last Admin: 10/02/17 09:22 Dose: 60 mg Lactulose (Generlac) 20 gm [place] DAILY PRN PRN Reason: Constipation Losartan Potassium (Cozaar) 100 mg PO DAILY [facility] Last Admin: 10/02/17 09:14 Dose: 100 mg Pravastatin Sodium (Pravachol) 40 mg PO HS [facility] Last Admin: 10/01/17 22:18 Dose: 40 mg Sevelamer HCl (Renagel) 1,600 mg PO TIDPC [facility] Last Admin: 10/02/17 13:14 Dose: 1,600 mg Vitamin A (Vitamin A&D) 1 applic TP Q8 [facility] Last Admin: 10/02/17 09:21 Dose: 1 applic Vitamin B Complex/Vit C/Folic Acid (Nephro-Varsha) 1 tab PO DAILY [facility] Last Admin: 10/02/17 09:20 Dose: 1 tab - Labs Labs: 10/02/17 04:00 10/02/17 04:00 PT 13.1 Seconds (9.8-13.1) 09/30/17 20:30 INR 1.2 (0.9-1.2) 09/30/17 20:30 APTT 29.3 Seconds (25.6-37.1) 09/30/17 20:30 - Constitutional Appears: Non-toxic, No Acute Distress - Head Exam Head Exam: ATRAUMATIC, NORMOCEPHALIC - Eye Exam Eye Exam: EOMI, PERRL Pupil Exam: NORMAL ACCOMODATION - ENT Exam ENT Exam: Mucous Membranes Moist, Normal Exam - Neck Exam Neck Exam: Full ROM, Normal Inspection - Respiratory Exam Respiratory Exam: Clear to Ausculation Bilateral, NORMAL BREATHING PATTERN. absent: Rales, Rhonchi, Wheezes - Cardiovascular Exam Cardiovascular Exam: REGULAR RHYTHM, Murmur (systolic). absent: JVD - GI/Abdominal Exam GI & Abdominal Exam: Soft, Normal Bowel Sounds. absent: Distended, Guarding, Rebound - Rectal Exam Rectal Exam: Deferred - Extremities Exam Extremities Exam: Full ROM, Normal Capillary Refill, Normal Inspection. absent : Pedal Edema - Back Exam Back Exam: NORMAL INSPECTION - Neurological Exam Neurological Exam: Alert, Awake, CN II-XII Intact - Psychiatric Exam Psychiatric exam: Normal Affect - Skin Skin Exam: Dry, Pallor, Warm Assessment and Plan - Assessment and Plan (Free Text) Assessment: 87 y/o F bwith PMH ESRD TTS, Dementia, HTN, sent to [facility] for nausea and several episodes of emesis for one day, unremitting, unknown if ameliorated by anything. Patient appeared to be very lethargic on presentation , febrile Tmax 102 WBC - wnl Blood cultures sent and started on Vanco and Gentamycin.ID consulted . Blood cultures reported gram negative madai 1. Gram negative bacteremia unclear etiology cXr showed no infiltrate Patient is anuric so can not send urine culture Abdominal Us unremarkable WBC 5 ID consulted continue Genat and Vanco post HD . Given Zosyn IV and tolerated well Procalcitonin elevated 1.6 2. Systolic murmur No prior documentation ECHO pending 3.ESRD HD TTS nephro consult with Dr. Miner resume HD TTS 4.Dementia resume home meds 5.CAD, HTN stable continue home meds , Plavix, iossorbide , Clonidine , losartan 6. Anemia of chronic disease stable 7.GERD? Famotidine 20 mg PO Q12 8. Tranaminitis and elevated bilirubin US showed no acute pathology abdominal pain , nausea and vomitinh have resolved Patient has cholecystectomy Probably elevated secondary to vomitingf episodes Monitor 9.Stage 1 Decub, sacral area Vit A/Vitamin D3/E/Aloe V/Zinc 1 appl TD Q8 Vitamin A/D 1 applic TP Q8 10.HLD cont Pravastatin Sodium [Pravachol] 40 mg PO HS 11.VTE ppx Lovenox
--- NOTE | 2017-10-02 15:20 | CON ---
DATE: INFECTIOUS DISEASE CONSULTATION HISTORY OF PRESENT ILLNESS: The patient is an 87-year-old female transferred [facility] a [facility]. The patient was seen and examined. She has history of dementia and answered some questions appropriately, but essentially took the history from the EMR. She has past history of end-stage renal disease on hemodialysis, again she was transferred from prison for vomiting. The patient had previous of episodes in the ER with temp of 102 with normal WBC count. The patient also had elevated liver function test and an abdominal ultrasound, which showed no pathology. No gallbladder, did have fatty liver. When asked she had pain today she said no. She was given a dose of vancomycin and gentamicin in the emergency room yesterday. Has had multiple blood cultures. Chest x-ray showed no infiltrate and abdominal x-ray no air fluid level. MEDICATIONS: Listed on the chart. PHYSICAL EXAMINATION: GENERAL: The patient is awake, but confused. HEENT: Atraumatic and normocephalic. Eyes; PERRLA, EOMI. Conjunctivae are pink. NECK: Supple. LUNGS: Basically decreased breath sounds, but clear. HEART: Regular sinus rhythm. Murmur is present. ABDOMEN: Soft. Positive bowel sounds. EXTREMITIES: No CCE. LABORATORY DATA: Creatinine is 5.6 and GFR is 7. LFT show AST of 142, ALT of 237, and alkaline phosphatase of 295. Cultures are pending as well as random vancomycin level. White count is 6 and hemoglobin is 9.8. She has 81% polys on differential. IMPRESSION AND PLAN: Based on the findings, the patient has urinary tract infection, rule out urosepsis, history of hypertension, and end-stage renal disease. The patient is ALLERGIC TO PENICILLIN AND FLUOROQUINOLONES, therefore, unable to give penicillin and/or any Cipro. In the case, she has been given a stat dose of gentamicin and I have added gentamicin 80 mg IV piggyback after each dialysis. We will consider adding the Bactrim pending the cultures. For present time, she is afebrile and we will hold off addition of any other antibiotics. Tristian Combs MD
[2017-10-02] MEDS: Gentamicin 80mg/50ml NS 80 MG/50 ML BAG IVPB SCH (17:33)
--- NOTE | 2017-10-02 17:34 | CP.PCM.CON ---
History of Present Illness - History of Present Illness History of Present Illness: Initial Nephrology Consultation: Assessment: critical GNR sepsis and abnormal LFT Hypertensive Chronic Kidney Disease (I12.0) End stage renal disease (N18.6) dependence on hemodialysis (Z99.2) (TTS) via AVF Anemia (D64.9), Hyperphosphatemia (E83.39), Secondary Hyperparathyroidism (E21.1 ), HTN (I12.0) s/p AICD Plan: Will plan for HD today as ordered. Continue with Nephrovite 1 tab/day. PRBC as needed for anemia. On ARTEMIO as epogen with HD, last Hb 9.8 Continue with phos binders home dose, check phos level BP control with meds as ordered. Patient on RAAS fran as losartan Glycemic control, Dialysis consistent diet Further work up/management as per primary team Dose meds/antibiotics (if needed) for ESRD status. Avoid fleets enema/magnesium based laxatives. Thanks for allowing me to participate in care of your patient. Will follow patient with you. Please call if any Qs Dr Cayden Alvarado Office: [phone] Chief Complaint;fever HPI: Pt is a 87 F with hx of ESRD on hemodialysis (TTS) via AVF, last dialysis thus, chronic anemia, hyperphosphatemia, secondary hyperparathyroidism, hypertension, hx of AICD presented with complaints of fever and found to have GNR sepsis, abnormal LFT renal consult for ESRD management. her hx of limited due to dementia denies SOB/pain ROS: Cardiovascular: No chest pain. Pulmonary: No shortness of breath Gastrointestinal: denies abdominal pain No nausea. No vomiting. All other negative but very limited and not reliable Physical Examination: General Appearance: Comfortable, in no acute respiratory distress, co-operative . Vitals reviewed and noted as below Head; Atraumatic, normocephalic ENT: no ulcers no thrush. Tongue is midline. Oropharynx: no rash or ulcers. EYES: Pupils are equal, round and reactive to light accommodation. Eye muscles and extraocular movement intact. Sclera is anicteric. Neck; supple no lymphadenopathy, no thyromegaly or bruit Lungs: Normal respiratory rate/effort. Breath sounds bilateral equal and basal crackles+ Heart: Normal rate. s1s2 normal. No rub or gallop. Extremities: no edema. No varicose veins Neurological: Patient is alert, awake and not oriented to place and time. No focal deficit. Strength bilateral appropriate and equal. has known dementia Skin: Warm and dry. Normal turgor. No rash. Palpitation: Normal elasticity for age Abdomen: Abdomen is soft. Bowel sounds +. There is no abdominal tenderness, no guarding/rigidity or organomegaly Psych: no insight and normal affect/mood MSK: no joint tenderness or swelling. Digits and nails normal, no deformity : kidney or bladder not palpable Access: AVF Labs/imaging reviewed. Past medical history, past surgical history, family history, social history, allergy reviewed and noted as below Family Hx: no hx of CKD. Non contributory Past Patient History - Past Medical History & Family History Past Medical History?: Yes - Past Social History Smoking Status: unknown - CARDIAC Hx Hypertension: Yes - PULMONARY Hx Respiratory Disorders: No - NEUROLOGICAL Hx Dementia: Yes - HEENT Hx HEENT Problems: No - RENAL Hx Chronic Kidney Disease: Yes - ENDOCRINE/METABOLIC Hx Endocrine Disorders: Yes Hx Diabetes Mellitus Type 2: Yes - HEMATOLOGICAL/ONCOLOGICAL Hx Blood Disorders: No - INTEGUMENTARY Hx Dermatological Problems: Yes - MUSCULOSKELETAL/RHEUMATOLOGICAL Hx Falls: Yes - GASTROINTESTINAL Hx Gastrointestinal Disorders: Yes Hx Gastroesophageal Reflux: Yes Other/Comment: Hx Prolapsed rectum - GENITOURINARY/GYNECOLOGICAL Hx Genitourinary Disorders: Yes - PSYCHIATRIC Hx Psychophysiologic Disorder: Yes Hx Substance Use: No Other/Comment: dementia - SURGICAL HISTORY Hx Surgeries: Yes Other/Comment: Hx Av fistula creation - ANESTHESIA Hx Anesthesia: Yes Hx Anesthesia Reactions: No Hx Malignant Hyperthermia: No Meds Allergies/Adverse Reactions: Allergies Allergy/AdvReac Type Severity Reaction Status Date / Time moxifloxacin [From Avelox] Allergy RASH Verified 09/30/17 20:20 Penicillins Allergy RASH Verified 09/30/17 20:20 - Medications Medications: Current Medications Acetaminophen (Tylenol 325mg Tab) 650 mg PO Q4 PRN PRN Reason: mild pain or temp Last Admin: 10/01/17 02:07 Dose: 650 mg Clonidine HCl (Catapres) 0.2 mg PO Q8 [facility] Last Admin: 10/02/17 16:55 Dose: Not Given Clopidogrel Bisulfate (Plavix) 75 mg PO DAILY [facility] Last Admin: 10/02/17 09:22 Dose: 75 mg Cyproheptadine HCl (Periactin) 4 mg PO BID [facility] Last Admin: 10/02/17 16:56 Dose: 4 mg Dimethicone (Proshield Plus Skin Protectant) 1 applic TOP Q8 [facility] Last Admin: 10/02/17 16:56 Dose: 1 applic Enoxaparin Sodium (Lovenox) 30 mg [place] DAILY [facility] PRN Reason: Protocol Last Admin: 10/02/17 09:20 Dose: 30 mg Famotidine (Pepcid) 20 mg PO Q12 [facility] Last Admin: 10/02/17 09:21 Dose: 20 mg Vancomycin HCl 1 gm/ Sodium (Chloride) 250 mls @ 166.667 mls/hr IVPB TTS [facility] PRN Reason: Protocol Gentamicin Sulfate/Sodium Chloride (Gentamicin 80mg/50ml Ns) 80 mg in 50 mls @ 50 mls/hr IVPB TTS [facility] PRN Reason: Protocol Isosorbide Mononitrate (Imdur) 60 mg PO DAILY [facility] Last Admin: 10/02/17 09:22 Dose: 60 mg Lactulose (Generlac) 20 gm [place] DAILY PRN PRN Reason: Constipation Losartan Potassium (Cozaar) 100 mg PO DAILY [facility] Last Admin: 10/02/17 09:14 Dose: 100 mg Pravastatin Sodium (Pravachol) 40 mg PO HS [facility] Last Admin: 10/01/17 22:18 Dose: 40 mg Sevelamer HCl (Renagel) 1,600 mg PO TIDPC [facility] Last Admin: 10/02/17 16:56 Dose: 1,600 mg Vitamin A (Vitamin A&D) 1 applic TP Q8 [facility] Last Admin: 10/02/17 16:57 Dose: 1 applic Vitamin B Complex/Vit C/Folic Acid (Nephro-Varsha) 1 tab PO DAILY [facility] Last Admin: 10/02/17 09:20 Dose: 1 tab Results - Vital Signs Recent Vital Signs: Last Vital Signs Temp 98.3 F 10/02/17 16:29 Pulse 62 10/02/17 16:29 Resp 20 10/02/17 16:29 BP 146/60 10/02/17 16:29 Pulse Ox 95 10/02/17 16:29 - Labs Result Diagrams: 10/02/17 04:00 10/02/17 04:00 Labs: Laboratory Results - last 24 hr 10/01/17 10/01/17 10/02/17 15:43 22:06 04:00 WBC RBC Hgb Hct MCV MCH MCHC RDW Plt Count Sodium 140 Potassium 4.1 Chloride 95 L Carbon Dioxide 29 Anion Gap 20 BUN 45 H Creatinine 5.6 H Est GFR ( Amer) 9 Est GFR (Non-Af Amer) 7 POC Glucose (mg/dL) 194 H Random Glucose 129 H Calcium 9.2 Total Bilirubin 2.3 H AST 142 H D ALT 237 H D Alkaline Phosphatase 295 H Total Protein 6.6 Albumin 3.4 L Globulin 3.2 Albumin/Globulin Ratio 1.1 Procalcitonin 1.61 H Random Vancomycin 10/02/17 10/02/17 10/02/17 04:00 05:53 11:16 WBC 5.2 RBC 3.00 L Hgb 9.8 L Hct 30.0 L MCV 100.0 H MCH 32.5 H MCHC 32.5 L RDW 16.6 H Plt Count 110 L Sodium Potassium Chloride Carbon Dioxide Anion Gap BUN Creatinine Est GFR ( Amer) Est GFR (Non-Af Amer) POC Glucose (mg/dL) 134 H 177 H Random Glucose Calcium Total Bilirubin AST ALT Alkaline Phosphatase Total Protein Albumin Globulin Albumin/Globulin Ratio Procalcitonin Random Vancomycin 10/02/17 10/02/17 15:00 16:32 WBC RBC Hgb Hct MCV MCH MCHC RDW Plt Count Sodium Potassium Chloride Carbon Dioxide Anion Gap BUN Creatinine Est GFR ( Amer) Est GFR (Non-Af Amer) POC Glucose (mg/dL) 193 H Random Glucose Calcium Total Bilirubin AST ALT Alkaline Phosphatase Total Protein Albumin Globulin Albumin/Globulin Ratio Procalcitonin Random Vancomycin 13.5
[2017-10-02] MEDS: Epoetin Alfa 4000 UNIT/ML Inj IV SCH (18:26)
[2017-10-02] MEDS: Pravastatin Sodium 40 MG TAB PO SCH (21:49)
[2017-10-03] MEDS: Proshield Plus GEL TOP SCH ×3 (00:25→16:43)
[2017-10-03] MEDS: Vitamin A/D oint 60G TP SCH ×3 (00:26→16:43)
[2017-10-03 07:28] LABS: HEMOGLOBIN 9.4 g/dL (12.0-16.0); MEAN CORPUSCULAR HEMOGLOBIN 32.7 pg (27.0-31.0); MEAN CORPUSCULAR HGB CONC 32.3 g/dL (33.0-37.0); RBC 2.88 Mil/uL (3.80-5.20); RED CELL DISTRIBUTION WIDTH 16.7 % (11.5-14.5); WHITE BLOOD COUNT 4.3 K/uL (4.8-10.8)
[2017-10-03 07:54] LABS: ALBUMIN 3.4 g/dL (3.5-5.0)
[2017-10-03] MEDS: Multivitamin Vitamin B Complex (Nephro-Vite) Tab PO SCH (08:39)
[2017-10-03] MEDS: Enoxaparin 30 mg Syringe SC SCH (08:41)
[2017-10-03 08:58] LABS: HEPATITIS B SURFACE AG Negative (NEGATIVE)
[2017-10-03 09:04] LABS: HEPATITIS B CORE AB NEGATIVE (NEGATIVE)
[2017-10-03 09:15] LABS: HEPATITIS C ANTIBODY NEGATIVE (NEGATIVE)
--- NOTE | 2017-10-03 10:36 | CP.PCM.PN ---
Subjective - Date & Time of Evaluation Date of Evaluation: 10/03/17 Time of Evaluation: 10:30 - Subjective Subjective: Patient was seen and examined at bedside. Pleasant female in no apparent distress. No N/V/D or abdominal pain reported Afebrile last 48 hours. No new complaints. Objective - Vital Signs/Intake and Output Vital Signs (last 24 hours): Temp Pulse Resp BP Pulse Ox 98.4 F 60 17 180/66 H 97 10/03/17 09:13 10/03/17 09:13 10/03/17 09:13 10/03/17 09:13 10/03/17 09:13 - Medications Medications: Current Medications Acetaminophen (Tylenol 325mg Tab) 650 mg PO Q4 PRN PRN Reason: mild pain or temp Last Admin: 10/01/17 02:07 Dose: 650 mg Amlodipine Besylate (Norvasc) 5 mg PO DAILY [facility] Clonidine HCl (Catapres) 0.2 mg PO Q8 [facility] Last Admin: 10/03/17 08:42 Dose: 0.2 mg Clopidogrel Bisulfate (Plavix) 75 mg PO DAILY [facility] Last Admin: 10/03/17 08:42 Dose: 75 mg Cyproheptadine HCl (Periactin) 4 mg PO BID [facility] Last Admin: 10/03/17 08:39 Dose: 4 mg Dimethicone (Proshield Plus Skin Protectant) 1 applic TOP Q8 [facility] Last Admin: 10/03/17 08:43 Dose: 1 applic Enoxaparin Sodium (Lovenox) 30 mg SC DAILY [facility] PRN Reason: Protocol Last Admin: 10/03/17 08:41 Dose: 30 mg Epoetin Stew (Procrit) 4,000 unit IV TTS [facility] Last Admin: 10/02/17 18:26 Dose: 4,000 unit Famotidine (Pepcid) 20 mg PO Q12 [facility] Last Admin: 10/03/17 08:42 Dose: 20 mg Vancomycin HCl 1 gm/ Sodium (Chloride) 250 mls @ 166.667 mls/hr IVPB TTS [facility] PRN Reason: Protocol Last Admin: 10/02/17 17:34 Dose: 166.667 mls/hr Gentamicin Sulfate/Sodium Chloride (Gentamicin 80mg/50ml Ns) 80 mg in 50 mls @ 50 mls/hr IVPB TTS [facility] PRN Reason: Protocol Last Admin: 10/02/17 17:33 Dose: 50 mls/hr Isosorbide Mononitrate (Imdur) 60 mg PO DAILY [facility] Last Admin: 10/03/17 08:40 Dose: 60 mg Lactulose (Generlac) 20 gm [place] DAILY PRN PRN Reason: Constipation Losartan Potassium (Cozaar) 100 mg PO DAILY [facility] Last Admin: 10/03/17 08:40 Dose: 100 mg Ondansetron HCl (Zofran Inj) 4 mg IVP Q6 PRN PRN Reason: Nausea/Vomiting Last Admin: 10/02/17 18:26 Dose: 4 mg Pravastatin Sodium (Pravachol) 40 mg PO HS [facility] Last Admin: 10/02/17 21:49 Dose: 40 mg Sevelamer HCl (Renagel) 800 mg PO TIDPC [facility] Vitamin A (Vitamin A&D) 1 applic TP Q8 [facility] Last Admin: 10/03/17 08:43 Dose: 1 applic Vitamin B Complex/Vit C/Folic Acid (Nephro-Varsha) 1 tab PO DAILY [facility] Last Admin: 10/03/17 08:39 Dose: 1 tab - Labs Labs: 10/03/17 05:30 10/03/17 05:30 PT 13.1 Seconds (9.8-13.1) 09/30/17 20:30 INR 1.2 (0.9-1.2) 09/30/17 20:30 APTT 29.3 Seconds (25.6-37.1) 09/30/17 20:30 - Additional Findings Additional findings: Physical exam: Constitutional- cooperative, awake, alert Head- NCAT, PERRL Eye- PERRL, EOMI ENT- normal exam, MMM. Neck- normal inspection, supple, no JVD Respiratory- CTAB, no wheezes rales rhonchi Cardiovascular- RRR, +S1, +S2 no MRG GI/Abdominal- normal bowel sounds, soft, no mass, no hsm Skin- warm, dry Extremities Exam- normal capillary refill, normal inspection Neurological Exam- alert, awake, oriented Psych- normal mood, normal affect Assessment and Plan - Assessment and Plan (Free Text) Plan: 87 y/o F with PMH ESRD TTS, Dementia, HTN, [facility] episodes of emesis for one day, unremitting, unknown if ameliorated by anything. Patient appeared to be very lethargic on presentation , febrile Tmax 102 WBC - wnl Blood cultures sent and started on Vanco and Gentamycin.ID consulted . Blood cultures reported gram negative madai 1. Gram negative bacteremia unclear etiology cXr showed no infiltrate Patient is anuric so can not send urine culture Abdominal Us unremarkable WBC 5-> 4.3 ID consulted Continue Gentamicin and Vancomycin post dialysis as per Infectious disease. D/C Zosyn Procalcitonin elevated 1.6 2. Systolic murmur No prior documentation ECHO pending 3.ESRD HD TTS nephro consult with Dr. Miner resume HD TTS 4.Dementia resume home meds 5.CAD, HTN stable continue home meds , Plavix, iossorbide , Clonidine , losartan 6. Anemia of chronic disease stable 7.GERD? Famotidine 20 mg PO Q12 8. Tranaminitis and elevated bilirubin US showed no acute pathology abdominal pain , nausea and vomitinh have resolved Patient has cholecystectomy Probably elevated secondary to vomitingf episodes Monitor 9.Stage 1 Decub, sacral area Vit A/Vitamin D3/E/Aloe V/Zinc 1 appl TD Q8 Vitamin A/D 1 applic TP Q8 10.HLD cont Pravastatin Sodium [Pravachol] 40 mg PO HS 11.VTE ppx Lovenox
--- NOTE | 2017-10-03 11:30 | CP.PCM.PN ---
Subjective - Date & Time of Evaluation Date of Evaluation: 10/03/17 Time of Evaluation: 11:30 - Subjective Subjective: I D NOTE HAD POSITIVE BLOOD CULTURE FOR E.COLI CONSIDERING SHE IS ON HD(HAS SHUNT) WILL NEED EXTENDED TREATMENT HAVE ORDERED SERIAL BLOOD CULTURES(X 3) WILL ORDER RANDOM GENTAMICIN LEVELS Objective - Vital Signs/Intake and Output Vital Signs (last 24 hours): Temp Pulse Resp BP Pulse Ox 98.4 F 64 17 179/61 H 97 10/03/17 09:13 10/03/17 10:47 10/03/17 09:13 10/03/17 10:47 10/03/17 09:13 - Medications Medications: Current Medications Acetaminophen (Tylenol 325mg Tab) 650 mg PO Q4 PRN PRN Reason: mild pain or temp Last Admin: 10/01/17 02:07 Dose: 650 mg Amlodipine Besylate (Norvasc) 5 mg PO DAILY [facility] Last Admin: 10/03/17 10:47 Dose: 5 mg Clonidine HCl (Catapres) 0.2 mg PO Q8 [facility] Last Admin: 10/03/17 08:42 Dose: 0.2 mg Clopidogrel Bisulfate (Plavix) 75 mg PO DAILY [facility] Last Admin: 10/03/17 08:42 Dose: 75 mg Cyproheptadine HCl (Periactin) 4 mg PO BID [facility] Last Admin: 10/03/17 08:39 Dose: 4 mg Dimethicone (Proshield Plus Skin Protectant) 1 applic TOP Q8 [facility] Last Admin: 10/03/17 08:43 Dose: 1 applic Enoxaparin Sodium (Lovenox) 30 mg SC DAILY [facility] PRN Reason: Protocol Last Admin: 10/03/17 08:41 Dose: 30 mg Epoetin Stew (Procrit) 4,000 unit IV TTS [facility] Last Admin: 10/02/17 18:26 Dose: 4,000 unit Famotidine (Pepcid) 20 mg PO Q12 [facility] Last Admin: 10/03/17 08:42 Dose: 20 mg Vancomycin HCl 1 gm/ Sodium (Chloride) 250 mls @ 166.667 mls/hr IVPB TTS [facility] PRN Reason: Protocol Last Admin: 10/02/17 17:34 Dose: 166.667 mls/hr Gentamicin Sulfate/Sodium Chloride (Gentamicin 80mg/50ml Ns) 80 mg in 50 mls @ 50 mls/hr IVPB TTS [facility] PRN Reason: Protocol Last Admin: 10/02/17 17:33 Dose: 50 mls/hr Isosorbide Mononitrate (Imdur) 60 mg PO DAILY [facility] Last Admin: 10/03/17 08:40 Dose: 60 mg Lactulose (Generlac) 20 gm [place] DAILY PRN PRN Reason: Constipation Losartan Potassium (Cozaar) 100 mg PO DAILY [facility] Last Admin: 10/03/17 08:40 Dose: 100 mg Ondansetron HCl (Zofran Inj) 4 mg IVP Q6 PRN PRN Reason: Nausea/Vomiting Last Admin: 10/02/17 18:26 Dose: 4 mg Pravastatin Sodium (Pravachol) 40 mg PO HS [facility] Last Admin: 10/02/17 21:49 Dose: 40 mg Sevelamer HCl (Renagel) 800 mg PO TIDPC [facility] Vitamin A (Vitamin A&D) 1 applic TP Q8 [facility] Last Admin: 10/03/17 08:43 Dose: 1 applic Vitamin B Complex/Vit C/Folic Acid (Nephro-Varsha) 1 tab PO DAILY [facility] Last Admin: 10/03/17 08:39 Dose: 1 tab - Labs Labs: 10/03/17 05:30 10/03/17 05:30 PT 13.1 Seconds (9.8-13.1) 09/30/17 20:30 INR 1.2 (0.9-1.2) 09/30/17 20:30 APTT 29.3 Seconds (25.6-37.1) 09/30/17 20:30
--- NOTE | 2017-10-03 15:14 | CP.PCM.PN ---
Subjective - Date & Time of Evaluation Date of Evaluation: 10/03/17 Time of Evaluation: 15:13 - Subjective Subjective: Nephrology Consultation Note: Assessment: stable GNR sepsis ? source and abnormal LFT Hypertensive Chronic Kidney Disease (I12.0) End stage renal disease (N18.6) dependence on hemodialysis (Z99.2) (TTS) via AVF Anemia (D64.9), Hyperphosphatemia (E83.39), Secondary Hyperparathyroidism (E21.1 ), HTN (I12.0) s/p AICD Plan: Will plan for HD wednesday as ordered. Continue with Nephrovite 1 tab/day. PRBC as needed for anemia. On ARTEMIO as epogen with HD, last Hb 9.8 Continue with phos binders home dose, check phos level BP control with meds as ordered. Patient on RAAS fran as losartan. started norvasc 5 mg/day Glycemic control, Dialysis consistent diet Further work up/management as per primary team Dose meds/antibiotics (if needed) for ESRD status. Avoid fleets enema/magnesium based laxatives. Thanks for allowing me to participate in care of your patient. Will follow patient with you. Please call if any Qs. d/w family bedside Dr Cayden Alvarado Office: [phone] Chief Complaint;fever HPI: Pt is a 87 F with hx of ESRD on hemodialysis (TTS) via AVF, last dialysis , chronic anemia, hyperphosphatemia, secondary hyperparathyroidism, hypertension, hx of AICD presented with complaints of fever and found to have GNR sepsis, abnormal LFT renal consult for ESRD management. her hx of limited due to dementia denies SOB/pain ROS: Cardiovascular: No chest pain. Pulmonary: No shortness of breath Gastrointestinal: denies abdominal pain No nausea. No vomiting. All other negative but very limited and not reliable Physical Examination: General Appearance: Comfortable, in no acute respiratory distress, co-operative . Vitals reviewed and noted as below Head; Atraumatic, normocephalic ENT: no ulcers no thrush. Tongue is midline. Oropharynx: no rash or ulcers. EYES: Pupils are equal, round and reactive to light accommodation. Eye muscles and extraocular movement intact. Sclera is anicteric. Neck; supple no lymphadenopathy, no thyromegaly or bruit Lungs: Normal respiratory rate/effort. Breath sounds bilateral equal and basal crackles+ Heart: Normal rate. s1s2 normal. No rub or gallop. Extremities: no edema. No varicose veins Neurological: Patient is alert, awake and not oriented to place and time. No focal deficit. Strength bilateral appropriate and equal. has known dementia Skin: Warm and dry. Normal turgor. No rash. Palpitation: Normal elasticity for age Abdomen: Abdomen is soft. Bowel sounds +. There is no abdominal tenderness, no guarding/rigidity or organomegaly Psych: no insight and normal affect/mood MSK: no joint tenderness or swelling. Digits and nails normal, no deformity : kidney or bladder not palpable Access: AVF Labs/imaging reviewed. Past medical history, past surgical history, family history, social history, allergy reviewed and noted as below Family Hx: no hx of CKD. Non contributory Objective - Vital Signs/Intake and Output Vital Signs (last 24 hours): Temp Pulse Resp BP Pulse Ox 98.4 F 64 17 179/61 H 97 10/03/17 09:13 10/03/17 10:47 10/03/17 09:13 10/03/17 10:47 10/03/17 09:13 - Medications Medications: Current Medications Acetaminophen (Tylenol 325mg Tab) 650 mg PO Q4 PRN PRN Reason: mild pain or temp Last Admin: 10/01/17 02:07 Dose: 650 mg Amlodipine Besylate (Norvasc) 5 mg PO DAILY [facility] Last Admin: 10/03/17 10:47 Dose: 5 mg Clonidine HCl (Catapres) 0.3 mg PO Q8 [facility] Clopidogrel Bisulfate (Plavix) 75 mg PO DAILY [facility] Last Admin: 10/03/17 08:42 Dose: 75 mg Cyproheptadine HCl (Periactin) 4 mg PO BID [facility] Last Admin: 10/03/17 08:39 Dose: 4 mg Dimethicone (Proshield Plus Skin Protectant) 1 applic TOP Q8 [facility] Last Admin: 10/03/17 08:43 Dose: 1 applic Enoxaparin Sodium (Lovenox) 30 mg SC DAILY [facility] PRN Reason: Protocol Last Admin: 10/03/17 08:41 Dose: 30 mg Epoetin Stew (Procrit) 4,000 unit IV TTS [facility] Last Admin: 10/02/17 18:26 Dose: 4,000 unit Famotidine (Pepcid) 20 mg PO Q12 [facility] Last Admin: 10/03/17 08:42 Dose: 20 mg Vancomycin HCl 1 gm/ Sodium (Chloride) 250 mls @ 166.667 mls/hr IVPB TTS [facility] PRN Reason: Protocol Last Admin: 10/02/17 17:34 Dose: 166.667 mls/hr Gentamicin Sulfate/Sodium Chloride (Gentamicin 80mg/50ml Ns) 80 mg in 50 mls @ 50 mls/hr IVPB TTS [facility] PRN Reason: Protocol Last Admin: 10/02/17 17:33 Dose: 50 mls/hr Isosorbide Mononitrate (Imdur) 60 mg PO DAILY [facility] Last Admin: 10/03/17 08:40 Dose: 60 mg Lactulose (Generlac) 20 gm [place] DAILY PRN PRN Reason: Constipation Losartan Potassium (Cozaar) 100 mg PO DAILY [facility] Last Admin: 10/03/17 08:40 Dose: 100 mg Ondansetron HCl (Zofran Inj) 4 mg IVP Q6 PRN PRN Reason: Nausea/Vomiting Last Admin: 10/02/17 18:26 Dose: 4 mg Pravastatin Sodium (Pravachol) 40 mg PO HS [facility] Last Admin: 10/02/17 21:49 Dose: 40 mg Sevelamer Carbonate (Renvela) 0.8 gm PO TIDPC [facility] Vitamin A (Vitamin A&D) 1 applic TP Q8 [facility] Last Admin: 10/03/17 08:43 Dose: 1 applic Vitamin B Complex/Vit C/Folic Acid (Nephro-Varsha) 1 tab PO DAILY [facility] Last Admin: 10/03/17 08:39 Dose: 1 tab - Labs Labs: 10/03/17 05:30 10/03/17 05:30 PT 13.1 Seconds (9.8-13.1) 09/30/17 20:30 INR 1.2 (0.9-1.2) 09/30/17 20:30 APTT 29.3 Seconds (25.6-37.1) 09/30/17 20:30
[2017-10-03] MEDS: Sevelamer Carb 0.8 gm/Packet PO SCH (16:43)
[2017-10-03] MEDS: Pravastatin Sodium 40 MG TAB PO SCH (21:15)
[2017-10-04] MEDS: Vitamin A/D oint 60G TP SCH ×3 (00:41→16:44)
[2017-10-04] MEDS: Proshield Plus GEL TOP SCH ×3 (00:42→16:43)
[2017-10-04 06:45] LABS: HEMOGLOBIN 9.8 g/dL (12.0-16.0); MEAN CELL VOLUME 101.3 fl (81.0-99.0); MEAN CORPUSCULAR HEMOGLOBIN 33.1 pg (27.0-31.0); MEAN CORPUSCULAR HGB CONC 32.7 g/dL (33.0-37.0); RBC 2.96 Mil/uL (3.80-5.20); RED CELL DISTRIBUTION WIDTH 16.7 % (11.5-14.5); WHITE BLOOD COUNT 4.3 K/uL (4.8-10.8)
[2017-10-04 07:00] LABS: CALCIUM 9.2 mg/dL (8.4-10.2)
[2017-10-04 07:10] LABS: VANCOMYCIN RANDOM 14.2 ug/mL
[2017-10-04] MEDS: Sevelamer Carb 0.8 gm/Packet PO SCH (09:38)
[2017-10-04] MEDS: Multivitamin Vitamin B Complex (Nephro-Vite) Tab PO SCH (10:31)
[2017-10-04] MEDS: Enoxaparin 30 mg Syringe SC SCH (10:41)
--- NOTE | 2017-10-04 11:04 | CP.PCM.PN ---
Subjective - Date & Time of Evaluation Date of Evaluation: 10/04/17 Time of Evaluation: 09:00 - Subjective Subjective: RENAL FOLLOW UP Assessment: stable GNR sepsis ? source and abnormal LFT Hypertensive Chronic Kidney Disease (I12.0) End stage renal disease (N18.6) dependence on hemodialysis (Z99.2) (TTS) via AVF Anemia (D64.9), Hyperphosphatemia (E83.39), Secondary Hyperparathyroidism (E21.1 ), HTN (I12.0) s/p AICD Plan: Will plan HD wednesday per TTS schedule Continue with Nephrovite 1 tab/day. PRBC as needed for anemia. On ARTEMIO as epogen with HD phos low, will hold binder hypertension on meds monitor abx per ID - dose for esrd and monitor levels - source not clear yet S: seen and examined no complaints Physical Examination: General Appearance: Comfortable, in no acute respiratory distress, co-operative . Vitals reviewed and noted as below Head; Atraumatic, normocephalic ENT: no ulcers no thrush. Tongue is midline. Oropharynx: no rash or ulcers. EYES: Pupils are equal, round Sclera is anicteric. Neck; supple no lymphadenopathy, no thyromegaly or bruit Lungs: Normal respiratory rate/effort. Breath sounds bilateral equal Heart: Normal rate. s1s2 normal. No rub or gallop. Extremities: no edema. No varicose veins Neurological: Patient is alert, awake and not oriented to place and time. follows commands Skin: Warm and dry. Normal turgor. No rash. Abdomen: Abdomen is soft. Bowel sounds +. There is no abdominal tenderness, no guarding/rigidity or organomegaly Psych: flat affect MSK: no joint tenderness or swelling. Digits and nails normal, no deformity : kidney or bladder not palpable Access: [facility]F Labs/imaging reviewed. Past medical history, past surgical history, family history, social history, allergy reviewed and noted as below Family Hx: no hx of CKD. Non contributory Objective - Vital Signs/Intake and Output Vital Signs (last 24 hours): Temp Pulse Resp BP Pulse Ox 97.8 F 61 20 172/61 H 95 10/04/17 07:56 10/04/17 10:42 10/04/17 07:56 10/04/17 10:42 10/04/17 07:56 - Medications Medications: Current Medications Acetaminophen (Tylenol 325mg Tab) 650 mg PO Q4 PRN PRN Reason: mild pain or temp Last Admin: 10/01/17 02:07 Dose: 650 mg Amlodipine Besylate (Norvasc) 10 mg PO DAILY [facility] Clonidine HCl (Catapres) 0.3 mg PO Q8 [facility] Last Admin: 10/04/17 10:40 Dose: 0.3 mg Clopidogrel Bisulfate (Plavix) 75 mg PO DAILY [facility] Last Admin: 10/04/17 10:39 Dose: 75 mg Cyproheptadine HCl (Periactin) 4 mg PO BID [facility] Last Admin: 10/04/17 10:39 Dose: 4 mg Dimethicone (Proshield Plus Skin Protectant) 1 applic TOP Q8 [facility] Last Admin: 10/04/17 10:43 Dose: 1 applic Enoxaparin Sodium (Lovenox) 30 mg SC DAILY [facility] PRN Reason: Protocol Last Admin: 10/04/17 10:41 Dose: 30 mg Epoetin Stew (Procrit) 4,000 unit IV TTS [facility] Last Admin: 10/02/17 18:26 Dose: 4,000 unit Famotidine (Pepcid) 20 mg PO Q12 [facility] Last Admin: 10/04/17 10:38 Dose: 20 mg Vancomycin HCl 1 gm/ Sodium (Chloride) 250 mls @ 166.667 mls/hr IVPB TTS [facility] PRN Reason: Protocol Last Admin: 10/02/17 17:34 Dose: 166.667 mls/hr Gentamicin Sulfate/Sodium Chloride (Gentamicin 80mg/50ml Ns) 80 mg in 50 mls @ 50 mls/hr IVPB TTS [facility] PRN Reason: Protocol Last Admin: 10/02/17 17:33 Dose: 50 mls/hr Isosorbide Mononitrate (Imdur) 60 mg PO DAILY [facility] Last Admin: 10/04/17 10:40 Dose: 60 mg Lactulose (Generlac) 20 gm [place] DAILY PRN PRN Reason: Constipation Losartan Potassium (Cozaar) 100 mg PO DAILY [facility] Last Admin: 10/04/17 10:42 Dose: 100 mg Ondansetron HCl (Zofran Inj) 4 mg IVP Q6 PRN PRN Reason: Nausea/Vomiting Last Admin: 10/02/17 18:26 Dose: 4 mg Pravastatin Sodium (Pravachol) 40 mg PO HS [facility] Last Admin: 10/03/17 21:15 Dose: 40 mg Sevelamer Carbonate (Renvela) 0.8 gm PO TIDPC [facility] Last Admin: 10/04/17 09:38 Dose: 0.8 gm Vitamin A (Vitamin A&D) 1 applic TP Q8 [facility] Last Admin: 10/04/17 10:43 Dose: 1 applic Vitamin B Complex/Vit C/Folic Acid (Nephro-Varsha) 1 tab PO DAILY [facility] Last Admin: 10/04/17 10:31 Dose: 1 tab - Labs Labs: 10/04/17 05:40 10/04/17 05:40 PT 13.1 Seconds (9.8-13.1) 09/30/17 20:30 INR 1.2 (0.9-1.2) 09/30/17 20:30 APTT 29.3 Seconds (25.6-37.1) 09/30/17 20:30
--- NOTE | 2017-10-04 13:31 | CARD ---
APPROVED REPORT EXAM: Two-dimensional and M-mode echocardiogram with Doppler and color Doppler. Other Information Quality : AverageRhythm : NSR INDICATION Murmur 2D DIMENSIONS IVSd1.31 (0.7-1.1cm)LVDd3.60 (3.9-5.9cm) LVOT Diameter1.95 (1.8-2.4cm)PWd1.04 (0.7-1.1cm) IVSs1.35 (0.8-1.2cm)LVDs2.72 (2.5-4.0cm) FS (%) 24.6 %PWs1.02 (0.8-1.2cm) M-Mode DIMENSIONS Left Atrium (MM)4.56 (2.5-4.0cm)IVSd1.26 (0.7-1.1cm) Aortic Root2.47 (2.2-3.7cm)LVDd4.00 (4.0-5.6cm) Aortic Cusp Exc.1.03 (1.5-2.0cm)PWd1.06 (0.7-1.1cm) IVSs1.47 cmFS (%) 33 % LVDs2.68 (2.0-3.8cm)PWs1.41 cm Aortic Valve AoV Peak Soabcnig371.8cm/sAoV VTI67.9cmAO Peak GR.25mmHg LVOT Peak Aisqwmex31.6cm/sLVOT VTI17.98cmAO Mean GR.14mmHg ALVIN (VMAX)0.55xj1TFE (VTI)0.53cm2 Mitral Valve MV E Ilhmtaib828.4cm/sMV DECEL RGAK113yoUF A Ojhyavon44.5cm/s MV BIM28tbJ/A ratio1.3MVA (PHT)2.62cm2 TDI Lateral E' Peak V9.86cm/sMedial E' Peak V4.89cm/sE/Lateral E'12.6 E/Medial E'25.4 Tricuspid Valve TR Peak Pxxzpqqr384ax/sRAP VHHCEBLS73soZlMV Peak Gr.23mmHg KAAM85dlAg LEFT VENTRICLE The left ventricle is normal in size. There is normal left ventricular wall thickness. The left ventricular function is normal. The left ventricular ejection fraction is - 55-60%. There is normal LV segmental wall motion. The patient is in atrial fibrillation. No left ventricle thrombus noted on this study. There is no ventricular septal defect visualized. There is no left ventricular aneurysm. There is no mass noted in the left ventricle. RIGHT VENTRICLE The right ventricle is normal size. There is normal right ventricular wall thickness. The right ventricular systolic function is normal. ATRIA The left atrium is moderately dilated. There is no thrombus suspected in the left atrium. The right atrium size is normal. The interatrial septum is intact with no evidence for an atrial septal defect. AORTIC VALVE The aortic valve is moderately calcified. There is trace aortic regurgitation. There is moderate valvular aortic stenosis visually. The Peak aortic valve gradient is 25 mmHg. There is no aortic valvular vegetation. MITRAL VALVE The mitral valve is normal in structure. Mitral annular calcification is mild. There is no evidence of mitral valve prolapse. There is no mitral valve stenosis. There is no mitral valve regurgitation noted. TRICUSPID VALVE The tricuspid valve is normal in structure. There is severe tricuspid regurgitation. Right ventricular systolic pressure is estimated at 41 mmHg. There is no tricuspid valve prolapse or vegetation. There is no tricuspid valve stenosis. PULMONIC VALVE The pulmonic valve is not well visualized. There is no pulmonic valvular regurgitation. GREAT VESSELS The aortic root is normal in size. The IVC was not visualized. PERICARDIAL EFFUSION The pericardium appears normal. There is no pleural effusion. <Conclusion> The left ventricle is normal in size and wall thickness. The left ventricular function is normal. The left ventricular ejection fraction is - 55-60%. The left atrium is moderately dilated. There is moderate valvular aortic stenosis visually. The mitral and tricuspid valves appear normal visually. There is trace aortic regurgitation and severe tricuspid regurgitation.
--- NOTE | 2017-10-04 14:36 | CP.PCM.PN ---
Subjective - Date & Time of Evaluation Date of Evaluation: 10/04/17 Time of Evaluation: 11:00 - Subjective Subjective: Patient was seen and examined at bedside. He has no pain at present and feels better. Afebrile, no leukocytosis. Denies cp/sob/f/n/v/d. Objective - Vital Signs/Intake and Output Vital Signs (last 24 hours): Temp Pulse Resp BP Pulse Ox 97.8 F 61 20 172/61 H 95 10/04/17 07:56 10/04/17 10:42 10/04/17 07:56 10/04/17 10:42 10/04/17 07:56 - Medications Medications: Current Medications Acetaminophen (Tylenol 325mg Tab) 650 mg PO Q4 PRN PRN Reason: mild pain or temp Last Admin: 10/01/17 02:07 Dose: 650 mg Amlodipine Besylate (Norvasc) 10 mg PO DAILY [facility] Clonidine HCl (Catapres) 0.3 mg PO Q8 [facility] Last Admin: 10/04/17 10:40 Dose: 0.3 mg Clopidogrel Bisulfate (Plavix) 75 mg PO DAILY [facility] Last Admin: 10/04/17 10:39 Dose: 75 mg Cyproheptadine HCl (Periactin) 4 mg PO BID [facility] Last Admin: 10/04/17 10:39 Dose: 4 mg Dimethicone (Proshield Plus Skin Protectant) 1 applic TOP Q8 [facility] Last Admin: 10/04/17 10:43 Dose: 1 applic Enoxaparin Sodium (Lovenox) 30 mg SC DAILY [facility] PRN Reason: Protocol Last Admin: 10/04/17 10:41 Dose: 30 mg Epoetin Stew (Procrit) 4,000 unit IV TTS [facility] Last Admin: 10/02/17 18:26 Dose: 4,000 unit Famotidine (Pepcid) 20 mg PO Q12 [facility] Last Admin: 10/04/17 10:38 Dose: 20 mg Vancomycin HCl 1 gm/ Sodium (Chloride) 250 mls @ 166.667 mls/hr IVPB TTS [facility] PRN Reason: Protocol Last Admin: 10/02/17 17:34 Dose: 166.667 mls/hr Gentamicin Sulfate/Sodium Chloride (Gentamicin 80mg/50ml Ns) 80 mg in 50 mls @ 50 mls/hr IVPB TTS [facility] PRN Reason: Protocol Last Admin: 10/02/17 17:33 Dose: 50 mls/hr Isosorbide Mononitrate (Imdur) 60 mg PO DAILY [facility] Last Admin: 10/04/17 10:40 Dose: 60 mg Lactulose (Generlac) [address] DAILY PRN PRN Reason: Constipation Losartan Potassium (Cozaar) 100 mg PO DAILY [facility] Last Admin: 10/04/17 10:42 Dose: 100 mg Ondansetron HCl (Zofran Inj) 4 mg IVP Q6 PRN PRN Reason: Nausea/Vomiting Last Admin: 10/02/17 18:26 Dose: 4 mg Pravastatin Sodium (Pravachol) 40 mg PO HS [facility] Last Admin: 10/03/17 21:15 Dose: 40 mg Vitamin A (Vitamin A&D) 1 applic TP Q8 [facility] Last Admin: 10/04/17 10:43 Dose: 1 applic Vitamin B Complex/Vit C/Folic Acid (Nephro-Varsha) 1 tab PO DAILY [facility] Last Admin: 10/04/17 10:31 Dose: 1 tab - Labs Labs: 10/04/17 05:40 10/04/17 05:40 PT 13.1 Seconds (9.8-13.1) 09/30/17 20:30 INR 1.2 (0.9-1.2) 09/30/17 20:30 APTT 29.3 Seconds (25.6-37.1) 09/30/17 20:30 - Additional Findings Additional findings: Physical exam: Constitutional- cooperative, awake, alert Head- NCAT, PERRL Eye- PERRL, EOMI ENT- normal exam, MMM. Neck- normal inspection, supple, no JVD Respiratory- CTAB, no wheezes rales rhonchi Cardiovascular- RRR, +S1, +S2 no MRG GI/Abdominal- normal bowel sounds, soft, no mass, no hsm Skin- warm, dry Extremities Exam- normal capillary refill, normal inspection Neurological Exam- alert, awake, oriented Psych- normal mood, normal affect Assessment and Plan - Assessment and Plan (Free Text) Plan: 87 y/o F with PMH ESRD TTS, Dementia, HTN, sent to ED from [facility] for nausea and several episodes of emesis for one day, unremitting, unknown if ameliorated by anything. Patient appeared to be very lethargic on presentation , febrile Tmax 102 WBC - wnl Blood cultures sent and started on Vanco and Gentamycin.ID consulted . Blood cultures reported gram negative madai 1. Gram negative bacteremia unclear etiology cXr showed no infiltrate Patient is anuric so can not send urine culture Abdominal Us unremarkable WBC 5-> 4.3 today ID consulted- as per Dr. Combs, will need extended course of antibiotics at [facility]. Ordered 3 new sets of blood cultures which are pending. Continue Gentamicin and Vancomycin post dialysis as per Infectious disease. D/C Zosyn Procalcitonin elevated 1.6 2. Systolic murmur No prior documentation ECHO pending 3.ESRD HD TTS nephro consult with Dr. Miner resume HD TTS 4.Dementia resume home meds 5.CAD, HTN stable continue home meds , Plavix, iossorbide , Clonidine , losartan 6. Anemia of chronic disease stable 7.GERD? Famotidine 20 mg PO Q12 8. Tranaminitis and elevated bilirubin US showed no acute pathology abdominal pain , nausea and vomitinh have resolved Patient has cholecystectomy Probably elevated secondary to vomitingf episodes Monitor 9.Stage 1 Decub, sacral area Vit A/Vitamin D3/E/Aloe V/Zinc 1 appl TD Q8 Vitamin A/D 1 applic TP Q8 10.HLD cont Pravastatin Sodium [Pravachol] 40 mg PO HS 11.VTE ppx Lovenox
[2017-10-04] MEDS: Pravastatin Sodium 40 MG TAB PO SCH (21:23)
[2017-10-05] MEDS: Proshield Plus GEL TOP SCH ×3 (00:41→18:16)
[2017-10-05] MEDS: Vitamin A/D oint 60G TP SCH ×3 (00:41→18:16)
[2017-10-05 06:47] LABS: HEMOGLOBIN 10.2 g/dL (12.0-16.0); MEAN CELL VOLUME 100.9 fl (81.0-99.0); MEAN CORPUSCULAR HEMOGLOBIN 32.6 pg (27.0-31.0); MEAN CORPUSCULAR HGB CONC 32.3 g/dL (33.0-37.0); RBC 3.13 Mil/uL (3.80-5.20); RED CELL DISTRIBUTION WIDTH 16.3 % (11.5-14.5); WHITE BLOOD COUNT 4.6 K/uL (4.8-10.8)
[2017-10-05 07:10] LABS: CALCIUM 9.2 mg/dL (8.4-10.2)
[2017-10-05 08:22] VITALS: RESP 20
[2017-10-05] MEDS: Gentamicin 80mg/50ml NS 80 MG/50 ML BAG IVPB SCH (10:55)
[2017-10-05] MEDS: Multivitamin Vitamin B Complex (Nephro-Vite) Tab PO SCH (10:56)
[2017-10-05] MEDS: Enoxaparin 30 mg Syringe SC SCH (10:59)
--- NOTE | 2017-10-05 13:20 | CP.PCM.DIS ---
Provider - Provider Date of Admission: 10/03/17 13:16 Attending physician: Sabine Rainey DO Primary care physician: Dr. Chappell Consults: ID consult Nephrology consult Time Spent in preparation of Discharge (in minutes): 15 Hospital Course - Lab Results Lab Results: Micro Results 10/04/17 09:23 Blood Blood Culture - Preliminary NO GROWTH AFTER 24 HOURS 10/01/17 00:01 Blood-Venous Blood Culture - Preliminary NO GROWTH AFTER 4 DAYS 10/01/17 00:48 Blood-Venous Blood Culture - Final Escherichia Coli 10/01/17 00:48 Blood-Venous Gram Stain - Final Most Recent Lab Values WBC 4.6 K/uL (4.8-10.8) L 10/05/17 05:55 RBC 3.13 Mil/uL (3.80-5.20) L 10/05/17 05:55 Hgb 10.2 g/dL (12.0-16.0) L 10/05/17 05:55 Hct 31.6 % (34.0-47.0) L 10/05/17 05:55 MCV 100.9 fl (81.0-99.0) H 10/05/17 05:55 MCH 32.6 pg (27.0-31.0) H 10/05/17 05:55 MCHC 32.3 g/dL (33.0-37.0) L 10/05/17 05:55 RDW 16.3 % (11.5-14.5) H 10/05/17 05:55 Plt Count 141 K/uL (130-400) 10/05/17 05:55 MPV 10.2 fl (7.2-11.7) 10/01/17 06:25 Neut % (Auto) 81.1 % (50.0-75.0) H 10/01/17 06:25 Lymph % (Auto) 10.5 % (20.0-40.0) L 10/01/17 06:25 [place] % (Auto) 7.9 % (0.0-10.0) 10/01/17 06:25 Eos % (Auto) 0.2 % (0.0-4.0) 10/01/17 06:25 Baso % (Auto) 0.3 % (0.0-2.0) 10/01/17 06:25 Neut # (Auto) 5.4 K/uL (1.8-7.0) 10/01/17 06:25 Lymph # (Auto) 0.7 K/uL (1.0-4.3) L 10/01/17 06:25 [place] # (Auto) 0.5 K/uL (0.0-0.8) 10/01/17 06:25 Eos # (Auto) 0.0 K/uL (0.0-0.7) 10/01/17 06:25 Baso # (Auto) 0.0 K/uL (0.0-0.2) 10/01/17 06:25 Neutrophils % (Manual) 79 % (42-75) H 09/30/17 20:30 Band Neutrophils % 1 % (0-2) 09/30/17 20:30 Lymphocytes % (Manual) 11 % (20-50) L 09/30/17 20:30 Reactive Lymphs % 2 % (0-0) H 09/30/17 20:30 Monocytes % (Manual) 6 % (0-10) 09/30/17 20:30 Metamyelocytes % 1 % (0-0) H 09/30/17 20:30 Platelet Estimate Decreased (NORMAL) L 09/30/17 20:30 Hypochromasia (manual) Moderate 09/30/17 20:30 Poikilocytosis (manual Slight 09/30/17 20:30 Anisocytosis (manual) Slight 09/30/17 20:30 Target Cells Slight 09/30/17 20:30 Tear Drop Cells Slight 09/30/17 20:30 Ovalocytes Slight 09/30/17 20:30 Rouleaux Slight 09/30/17 20:30 PT 13.1 Seconds (9.8-13.1) 09/30/17 20:30 INR 1.2 (0.9-1.2) 09/30/17 20:30 APTT 29.3 Seconds (25.6-37.1) 09/30/17 20:30 Sodium 130 mmol/l (132-148) L 10/05/17 05:55 Potassium 5.3 MMOL/L (3.6-5.0) H 10/05/17 05:55 Chloride 93 mmol/L (98-107) L 10/05/17 05:55 Carbon Dioxide 23 mmol/L (22-30) 10/05/17 05:55 Anion Gap 19 (10-20) 10/05/17 05:55 BUN 43 mg/dl (7-17) H 10/05/17 05:55 Creatinine 5.9 mg/dl (0.7-1.2) H 10/05/17 05:55 Est GFR ( Amer) 8 10/05/17 05:55 Est GFR (Non-Af Amer) 7 10/05/17 05:55 POC Glucose (mg/dL) 170 mg/dL (65-110) H 10/05/17 05:08 Random Glucose 162 mg/dL (65-105) H 10/05/17 05:55 Lactic Acid 1.9 MMOL/L (0.7-2.1) 10/01/17 15:43 Calcium 9.2 mg/dL (8.4-10.2) 10/05/17 05:55 Phosphorus 2.0 mg/dl (2.5-4.5) L 10/03/17 05:30 Total Bilirubin 1.4 mg/dl (0.2-1.3) H 10/03/17 05:30 Direct Bilirubin 2.9 mg/ml (0.0-0.4) H 10/01/17 06:25 AST 70 U/L (14-36) H D 10/03/17 05:30 ALT 172 U/L (9-52) H D 10/03/17 05:30 Alkaline Phosphatase 273 U/L (38-126) H 10/03/17 05:30 Total Protein 6.7 G/DL (6.3-8.2) 10/03/17 05:30 Albumin 3.4 g/dL (3.5-5.0) L 10/03/17 05:30 Globulin 3.3 gm/dL (2.2-3.9) 10/03/17 05:30 Albumin/Globulin Ratio 1.0 (1.0-2.1) 10/03/17 05:30 Lipase 184 U/L (23-300) 09/30/17 22:22 Procalcitonin 1.61 NG/ML (0.19-0.49) H 10/01/17 15:43 Random Gentamicin 4.0 ug/mL 10/04/17 05:40 Random Vancomycin 14.2 ug/mL 10/04/17 05:40 Hep Bs Antigen Negative (NEGATIVE) 10/02/17 15:00 Hep Bs Antibody Indeterminate (NEGATIVE) 10/02/17 15:00 Hep B Core IgM Ab Negative (NEGATIVE) 10/02/17 15:00 Hepatitis C Antibody Negative (NEGATIVE) 10/02/17 15:00 - Hospital Course Hospital Course: 87 y/o F with PMH ESRD TTS, Dementia, HTN, sent to ED from [facility] for nausea and several episodes of emesis for one day, unremitting, unknown if ameliorated by anything. Patient appeared to be very lethargic on presentation , febrile Tmax 102 WBC - wnl Blood cultures sent and started on Vanco and Gentamycin.ID consulted . Blood cultures reported gram negative madai, E.Coli sensitive to Genta Patient clinically improved , more awake and alert , afebrile and WBC - wnl Discussed with ID . Given that patient is HD patient will continue Gentamycin for total 2 weeks treatment post HD. Check Genatmycin levels Will d/c patient back to [place] Follow up with PMD DR. Chappell Repeat blood cultures post treatment. 1.E. Coli bacteremia/ sepsis present in admission unclear etiology cXr showed no infiltrate Patient is anuric so can not send urine culture Abdominal Us unremarkable WBC 5-> 4.3 today ID consulted- as per Dr. Combs, will need extended course of antibiotics at [facility]. Repeat blood cultures with no growth Continue Gentamicin post dialysis as per Infectious disease 6 more doses 2. Systolic murmur No prior documentation ECHO showed moderate , trace aortic regurgitation and severe tricuspid regurgitation . EF 55-6- % 3.ESRD HD TTS nephro consult with Dr. Miner resume HD TTS 4.Dementia resume home meds 5.CAD, HTN stable continue home meds , Plavix, iossorbide , Clonidine , losartan 6. Anemia of chronic disease stable 7.GERD? Famotidine 20 mg PO Q12 8. Transaminitis and elevated bilirubin US showed no acute pathology abdominal pain , nausea and vomiting have resolved Patient has cholecystectomy Probably elevated secondary to vomiting episodes Monitor 9.Stage 1 Decub, sacral area Vit A/Vitamin D3/E/Aloe V/Zinc 1 appl TD Q8 Vitamin A/D 1 applic TP Q8 10.HLD cont Pravastatin Sodium [Pravachol] 40 mg PO HS Discharge Exam - Head Exam Head Exam: ATRAUMATIC, NORMOCEPHALIC Additional comments: pleasantly demented - Eye Exam Eye Exam: EOMI, PERRL Pupil Exam: NORMAL ACCOMODATION - ENT Exam ENT Exam: Mucous Membranes Dry, Normal Exam - Neck Exam Neck exam: Full Rom, Normal Inspection - Respiratory Exam Respiratory Exam: Clear to PA & Lateral, NORMAL BREATHING PATTERN. absent: Rales, Rhonchi, Wheezes - Cardiovascular Exam Cardiovascular Exam: Systolic Murmur. absent: JVD - GI/Abdominal Exam GI & Abdominal Exam: Normal Bowel Sounds, Soft. absent: Distended, Guarding, Rebound, Tenderness - Rectal Exam Rectal Exam: Deferred - Extremities Exam Extremities exam: normal capillary refill, pedal pulses present Additional comments: RUE AVF - Back Exam Back exam: NORMAL INSPECTION - Neurological Exam Neurological exam: Alert, CN II-XII Intact Additional comments: oriented to self and place pleasantly demented no gross neuro deficits - Psychiatric Exam Psychiatric exam: Normal Affect - Skin Skin Exam: Dry Additional comments: stage I decubitus ulcer Discharge Plan - Discharge Medications Prescriptions: Gentamicin 80mg/50ml NS 80 mg IV TTS #6 bag - Follow Up Plan Condition: STABLE Disposition: HOME/ ROUTINE Patient education suggested?: Yes Instructions: Hemodialysis (DC), Dementia (DC), Sepsis in Adults, Sepsis, Adult (DC) Referrals: Asim Miner MD [Staff Provider] - Tristian Combs MD [Medical Doctor] - Jean-Claude Chappell MD [Staff Provider] -
--- NOTE | 2017-10-05 14:26 | CP.PCM.PN ---
Subjective - Date & Time of Evaluation Date of Evaluation: 10/05/17 Time of Evaluation: 14:23 - Subjective Subjective: RENAL FOLLOW UP seen on dialysis Assessment: stable GNR sepsis ? source and abnormal LFT Hypertensive Chronic Kidney Disease (I12.0) End stage renal disease (N18.6) dependence on hemodialysis (Z99.2) (TTS) via AVF Anemia (D64.9), Hyperphosphatemia (E83.39), Secondary Hyperparathyroidism (E21.1 ), HTN (I12.0) s/p AICD Plan: continue tts schedule Continue with Nephrovite 1 tab/day. PRBC as needed for anemia. epogen with HD monitor phos levels hypertension on meds monitor abx per ID - dose for esrd and monitor levels - source not clear yet Physical Examination: General Appearance: Comfortable, in no acute respiratory distress, co-operative . Vitals reviewed and noted as below Head; Atraumatic, normocephalic ENT: no ulcers no thrush. Tongue is midline. Oropharynx: no rash or ulcers. EYES: Pupils are equal, round Sclera is anicteric. Neck; supple no lymphadenopathy, no thyromegaly or bruit Lungs: Normal respiratory rate/effort. Breath sounds bilateral equal Heart: Normal rate. s1s2 normal. No rub or gallop. Extremities: no edema. No varicose veins Neurological: Patient is alert, awake and not oriented to place and time. follows commands Skin: Warm and dry. Normal turgor. No rash. Abdomen: Abdomen is soft. Bowel sounds +. There is no abdominal tenderness, no guarding/rigidity or organomegaly Psych: flat affect MSK: no joint tenderness or swelling. : kidney or bladder not palpable Access: AVF Objective - Vital Signs/Intake and Output Vital Signs (last 24 hours): Temp Pulse Resp BP Pulse Ox 97.3 F L 61 20 177/61 H 96 10/05/17 08:21 10/05/17 10:59 10/05/17 08:21 10/05/17 10:59 10/05/17 08:21 - Medications Medications: Current Medications Acetaminophen (Tylenol 325mg Tab) 650 mg PO Q4 PRN PRN Reason: mild pain or temp Last Admin: 10/01/17 02:07 Dose: 650 mg Amlodipine Besylate (Norvasc) 10 mg PO DAILY [facility] Last Admin: 10/05/17 10:56 Dose: 10 mg Clonidine HCl (Catapres) 0.3 mg PO Q8 [facility] Last Admin: 10/05/17 10:58 Dose: 0.3 mg Clopidogrel Bisulfate (Plavix) 75 mg PO DAILY [facility] Last Admin: 10/05/17 10:59 Dose: 75 mg Cyproheptadine HCl (Periactin) 4 mg PO BID [facility] Last Admin: 10/05/17 10:56 Dose: 4 mg Dimethicone (Proshield Plus Skin Protectant) 1 applic TOP Q8 [facility] Last Admin: 10/05/17 11:36 Dose: 1 applic Enoxaparin Sodium (Lovenox) 30 mg SC DAILY [facility] PRN Reason: Protocol Last Admin: 10/05/17 10:59 Dose: 30 mg Epoetin Stew (Procrit) 4,000 unit IV TTS [facility] Last Admin: 10/02/17 18:26 Dose: 4,000 unit Famotidine (Pepcid) 20 mg PO Q12 [facility] Last Admin: 10/05/17 10:56 Dose: 20 mg Vancomycin HCl 1 gm/ Sodium (Chloride) 250 mls @ 166.667 mls/hr IVPB TTS [facility] PRN Reason: Protocol Last Admin: 10/02/17 17:34 Dose: 166.667 mls/hr Gentamicin Sulfate/Sodium Chloride (Gentamicin 80mg/50ml Ns) 80 mg in 50 mls @ 50 mls/hr IVPB TTS [facility] PRN Reason: Protocol Last Admin: 10/05/17 10:55 Dose: 50 mls/hr Isosorbide Mononitrate (Imdur) 60 mg PO DAILY [facility] Last Admin: 10/05/17 10:59 Dose: 60 mg Lactulose (Generlac) 20 gm [place] DAILY PRN PRN Reason: Constipation Losartan Potassium (Cozaar) 100 mg PO DAILY [facility] Last Admin: 10/05/17 10:59 Dose: 100 mg Ondansetron HCl (Zofran Inj) 4 mg IVP Q6 PRN PRN Reason: Nausea/Vomiting Last Admin: 10/02/17 18:26 Dose: 4 mg Pravastatin Sodium (Pravachol) 40 mg PO HS [facility] Last Admin: 10/04/17 21:23 Dose: 40 mg Vitamin A (Vitamin A&D) 1 applic TP Q8 [facility] Last Admin: 10/05/17 11:36 Dose: 1 applic Vitamin B Complex/Vit C/Folic Acid (Nephro-Varsha) 1 tab PO DAILY [facility] Last Admin: 10/05/17 10:56 Dose: 1 tab - Labs Labs: 10/05/17 05:55 10/05/17 05:55 PT 13.1 Seconds (9.8-13.1) 09/30/17 20:30 INR 1.2 (0.9-1.2) 09/30/17 20:30 APTT 29.3 Seconds (25.6-37.1) 09/30/17 20:30
[2017-10-05 16:41] VITALS: BP 133/66; PULSE 62; TEMP 97.4; O2SAT 98
[2017-10-05] MEDS: Epoetin Alfa 4000 UNIT/ML Inj IV SCH (17:36)
[2017-10-05] MEDS ORDERED: Epoetin Alfa 4000 UNIT/ML Inj SC ONE (18:26)
== END 2017-10-05 21:20 | DRG 871 ==
LOC: H.ER 20:17 → INTOOBSV 10-01 00:33 → H.ERHOLD 10-01 00:33 → OBSVTOIN 10-01 00:33 → UNDOADMOB 10-01 00:33 → H.MEDSURG1 10-01 02:24 → H.ERHOLD 10-01 02:24 → H.MEDSURG1 10-02 17:50 → OBSVTOIN 10-03 13:16 → H.MEDSURG1 10-03 13:16
PROVIDERS: ADMIT Student in an Organized Health Care Education/Training Program; ATTEND Student in an Organized Health Care Education/Training Program
PROC: 5A1D70Z Performance of Urinary Filtration, Intermittent, Less than 6 Hours Per Day (ICD-10-PCS; principal; 2017-10-02)
DX: A41.51 Sepsis due to Escherichia coli [E. coli] (principal); N18.6 End stage renal disease; I12.0 Hypertensive chronic kidney disease with stage 5 chronic kidney disease or end stage renal disease; N25.81 Secondary hyperparathyroidism of renal origin; N39.0 Urinary tract infection, site not specified; D63.8 Anemia in other chronic diseases classified elsewhere; E11.22 Type 2 diabetes mellitus with diabetic chronic kidney disease; E78.5 Hyperlipidemia, unspecified; E83.39 Other disorders of phosphorus metabolism; F03.90 Unspecified dementia, unspecified severity, without behavioral disturbance, psychotic disturbance, mood disturbance, and anxiety; I25.10 Atherosclerotic heart disease of native coronary artery without angina pectoris; K21.9 Gastro-esophageal reflux disease without esophagitis; L89.151 Pressure ulcer of sacral region, stage 1; Z66 Do not resuscitate; Z79.899 Other long term (current) drug therapy; Z88.0 Allergy status to penicillin; Z95.810 Presence of automatic (implantable) cardiac defibrillator; Z99.2 Dependence on renal dialysis; R01.1 Cardiac murmur, unspecified; R74.0 Nonspecific elevation of levels of transaminase and lactic acid dehydrogenase [LDH]; R94.5 Abnormal results of liver function studies